=== PATIENT | male | born 1955 | race Caucasian/White ===

== ENCOUNTER → 2017-01-09 | Outpatient (CLI) | payer OTHER ==
--- NOTE | 2017-01-09 13:28 | MR ---
MRI CERVICAL SPINE: CLINICAL HISTORY: Cervical spine crepitus and osteophyte per order. Headache with severe posterior ne ck pain for 2 years causing pain or weakness in both arms and fingers per patient. TECHNIQUE: Multiplanar, multisequence imaging of the cervical spine is performed without and with IV contrast, 17 cc of gadolinium was given intravenously. COMPARISON: CT cervical spine myelogram September 25, 2010. FINDINGS: Sagittal images of the cervical spine show the craniocervical junction to remain within nor mal limits. The cervical and upper thoracic spinal cord is normal in course, caliber, and signal. V ertebral alignment is anatomic. The vertebral body heights are normal. There is moderate multilevel spurring and disc space narrowing most prominent at C6-C7 level redemonstrated. Heterogeneous endplat e changes are again seen. No suspicious postcontrast enhancement is noted. No large posterior disc he rniations are seen on sagittal images. Axial images at C2-C3 level redemonstrate left-sided uncovertebral facet degenerative changes causing asymmetric mild left-sided neural foraminal narrowing. Axial images at C3-C4 level show broad-based left paracentral disc protrusion and left-sided uncovert ebral facet degenerative changes with some right marginal spurring, there is mild to moderate bilater al neural foraminal narrowing, left greater than right. There is some effacement the anterior thecal sac. Axial images at C4-C5 level show broad-based posterior disc protrusion effacing anterior thecal sac w ith asymmetric mild to moderate right greater than left neural foraminal narrowing due to some margin al spurring. Axial images at C5-C6 level show left paracentral disc protrusion effacing anterolateral thecal sac, bilateral neural foramina are mildly narrowed. Axial images at C6-C7 level show broad-based left paracentral disc protrusion and marginal spurring e ffacing anterior thecal sac and causing mild left greater than right neural foraminal narrowing. Axial images at C7-T1 level are felt within normal limits. There is asymmetric prominence of left-sided piriform sinus or air collection on axial image 35 uncha nged from prior study. IMPRESSION: Moderate multilevel changes in the cervical spine as detailed above, no significant kaur e or progression from 2011 CT myelogram noted.
== END | disposition home or self-care (01) ==
LOC: RADMRIMAIN 11:45
PROVIDERS: ATTEND Family Medicine
DX: M47.812 Spondylosis without myelopathy or radiculopathy, cervical region (principal); M25.78 Osteophyte, vertebrae
CPT/HCPCS: 72156; A9577

== ENCOUNTER → 2017-11-26 | Outpatient (CLI) | payer OTHER ==
--- NOTE | 2017-11-26 15:53 | US ---
EXAMINATION TYPE: US kidneys/renal and bladder DATE OF EXAM: 11/26/2017 COMPARISON: 02/22/2014 CLINICAL HISTORY: R10.9 Right Flank Pain. Right flank pain x 8 months, history of kidney stones EXAM MEASUREMENTS: Right Kidney: 10.3 x 5.0 x 5.7 cm Left Kidney: 11.3 x 5.6 x 4.6 cm Right Kidney: 2.3 x 1.8 x 2.0cm isoechoic area mid pole, possible prominent column of rob (seen on previous us) Left Kidney: 0.5cm echogenic focus mid pole (seen on previous us) Bladder: wnl Bilateral Jets seen: yes IMPRESSION: 1. Column of Rob, likely present within the mid right kidney, similar to prior study. 2. Stable echogenic focus left kidney
== END | disposition home or self-care (01) ==
LOC: RADUSWWP 15:03
PROVIDERS: ATTEND Family Medicine
DX: R10.9 Unspecified abdominal pain (principal)
CPT/HCPCS: 76770

== ENCOUNTER → 2018-01-11 | Outpatient (CLI) | payer OTHER ==
[2018-01-11 11:02] LABS: ALT 51 U/L (21-72); AST 30 U/L (17-59); Albumin 4.2 g/dL (3.5-5.0); Alkaline Phosphatase 86 U/L (38-126); Anion Gap 13 mmol/L; Blood Urea Nitrogen 9 mg/dL (9-20); Carbon Dioxide 29 mmol/L (22-30); Chloride 102 mmol/L (98-107); Cholesterol 116 mg/dL (<200); Glucose 181 mg/dL (74-99); HDL Cholesterol 43 mg/dL (40-60); LDL Cholesterol,Calculated 51 mg/dL (0-99); Potassium 3.6 mmol/L (3.5-5.1); Sodium 144 mmol/L (137-145); Total Bilirubin 0.7 mg/dL (0.2-1.3); Total Protein 6.6 g/dL (6.3-8.2); Triglycerides 110 mg/dL (<150)
== END ==
LOC: LABWHC1 10:35
PROVIDERS: ATTEND Internal Medicine Interventional Cardiology
DX: E78.2 Mixed hyperlipidemia (principal)
CPT/HCPCS: 36415; 80053; 80061

== ENCOUNTER → 2018-02-04 | Outpatient (CLI) | payer OTHER ==
--- NOTE | 2018-02-04 12:08 | CT ---
EXAMINATION TYPE: CT iac wo con DATE OF EXAM: 02/04/2018 COMPARISON: NONE HISTORY: Cholesteatoma. Left-sided hearing loss. CT DLP: 235 mGycm. Automated Exposure Control for Dose Reduction was Utilized. TECHNIQUE: CT scan of internal auditory canal is performed without contrast, thin cut axial images ar e obtained, coronal reformatted images are also reviewed. FINDINGS: There is mild thickening of the left tympanic membrane. Right-sided tympanic membrane has a normal appearance. The external auditory canals are patent bilaterally. Mastoid air cells show no e vidence of abnormal opacification bilaterally. The middle ear ossicles are symmetric and unremarkabl e. There is no evidence of suspicious surrounding soft tissue density to suggest cholesteatoma. The scutum is preserved bilaterally. The cochlea and the semicircular canals are symmetric and unremark able. Vestibular aqueduct and internal carotid canal appear unremarkable. Temporomandibular joints are maintained bilaterally. Visualized paranasal sinuses are grossly clear. Visualized portion brain parenchyma is felt within normal limits. IMPRESSION: 1. Thickening of the left-sided tympanic membrane. 2. No evidence for cholesteatoma at this time.
== END | disposition home or self-care (01) ==
LOC: RADCTMAIN 10:47
PROVIDERS: ATTEND Otolaryngology Facial Plastic Surgery
DX: H73.892 Other specified disorders of tympanic membrane, left ear (principal)
CPT/HCPCS: 70480

== ENCOUNTER 2018-07-19 10:16 | Emergency (ER) | payer MEDICARE, OTHER ==
[2018-07-19 10:21] VITALS: TEMP 97.5
[2018-07-19] MEDS ORDERED: SODIUM CHLORIDE 0.9% 1,000 ML IV STA (10:35)
--- NOTE | 2018-07-19 10:50 | ED ---
Abdominal Pain HPI - General Source: patient, RN notes reviewed Mode of arrival: ambulatory Limitations: no limitations <Timothy Burciaga - Last Filed: 07/19/18 13:28> <David Feliciano - Last Filed: 07/19/18 13:35> - General Chief Complaint: Abdominal Pain Stated Complaint: Side pain Time Seen by Provider: 07/19/18 10:24 - History of Present Illness Initial Comments: This a 63-year-old male presents emergency Department chief complaint right low back pain. Patient states pain has been ongoing for last 2 months worsened over this last week. He states he cannot sleep. Patient states he saw his primary care physician had x-rays show no acute abnormality. Patient states that he has had prior lumbar surgery and bone grafting. Patient states that he has no new lower extremity symptoms. Denies any bowel bladder incontinence or retention. Patient states he has no abdominal pain denies any change in his bowel habits including color, size and caliber. Patient states that positional changes only make his pain better or worse. Patient is concerned has he states that his mother of liver disease and he states that he's a regular drinker. (Timothy Burciaga) - Related Data Home Medications Medication Instructions Recorded Confirmed Clopidogrel [Plavix] 75 mg PO DAILY 01/12/14 07/19/18 Gabapentin [Neurontin] 100 mg PO TID 01/12/14 07/19/18 Hydrocodone/Acetaminophen 1 tab PO Q4H PRN 01/12/14 07/19/18 [Hydrocodone/Acetaminophen 10-325] Nitroglycerin Sl Tabs [Nitrostat] 0.4 mg SUBLINGUAL Q5M PRN 01/12/14 07/19/18 Ranitidine HCl [Zantac] 150 mg PO BID 01/12/14 07/19/18 Ergocalciferol [Vitamin D2 50,000 unit PO Q30D 06/22/14 07/19/18 (DRISDOL)] Aspirin EC [Ecotrin] 325 mg PO DAILY 06/23/14 07/19/18 ALPRAZolam [Xanax] 0.25 mg PO HS 04/30/15 07/19/18 Albuterol Inhaler [Ventolin Hfa 1 - 2 puff INHALATION RT-Q6H PRN 04/30/15 Inhaler] Hydrochlorothiazide 50 mg PO DAILY 02/03/17 07/19/18 hydrALAZINE HCL 50 mg PO TID 02/03/17 07/19/18 Glimepiride [Amaryl] 4 mg PO BID 07/19/18 07/19/18 metFORMIN HCL [Glucophage] 850 mg PO TID 07/19/18 07/19/18 Previous Rx's Medication Instructions Recorded Atorvastatin [Lipitor] 80 mg PO DAILY tab 11/02/14 Metoprolol Tartrate [Lopressor] 25 mg PO BID #60 tab 05/01/15 Allergies Allergy/AdvReac Type Severity Reaction Status Date / Time No Known Allergies Allergy Verified 07/19/18 10:51 Review of Systems ROS Other: All systems not noted in ROS Statement are negative. <Timothy Burciaga - Last Filed: 07/19/18 13:28> ROS Other: All systems not noted in ROS Statement are negative. <David Feliciano - Last Filed: 07/19/18 13:35> ROS Statement: Those systems with pertinent positive or pertinent negative responses have been documented in the HPI. Past Medical History Past Medical History: Coronary Artery Disease (CAD), Chest Pain / Angina, COPD, CVA/TIA, Deep Vein Thrombosis (DVT), GERD/Reflux, GI Bleed, Hyperlipidemia, Hypertension, Osteoarthritis (OA), Pneumonia Additional Past Medical History / Comment(s): migraine; [place], hole in left eardrum, PVD; varicose veins; psorasis; chronic back pain. restless leg syndrome, hx of tia., stated boarderline diabetic no meds and does'nt check bs at home History of Any Multi-Drug Resistant Organisms: None Reported Past Surgical History: Back Surgery, Hernia Repair, Joint Replacement Additional Past Surgical History / Comment(s): hardware in back; rt knee replaced x2; egd; 4 stents (2010); left leg bypass graft, inguinal hernia.ABD AORTOGRAM AND LYNDA LOWER EXTREMITIY RUN OFF. Past Anesthesia/Blood Transfusion Reactions: No Reported Reaction Date of Last Stent Placement:: JUN 2011 Past Psychological History: Anxiety, Depression Smoking Status: Current some day smoker Past Alcohol Use History: Occasional Past Drug Use History: Marijuana - Past Family History Father Family Medical History: Cancer Brother(s) Family Medical History: Cancer, Diabetes Mellitus Mother Family Medical History: Cancer <GualbertoTimothy Dill - Last Filed: 07/19/18 13:28> General Exam Limitations: no limitations General appearance: alert, in no apparent distress Head exam: Present: atraumatic, normocephalic, normal inspection Respiratory exam: Present: normal lung sounds bilaterally. Absent: respiratory distress, wheezes, rales, rhonchi, stridor Cardiovascular Exam: Present: regular rate, normal rhythm, normal heart sounds. Absent: systolic murmur, diastolic murmur, rubs, gallop, clicks GI/Abdominal exam: Present: soft, normal bowel sounds. Absent: distended, tenderness, guarding, rebound, rigid Extremities exam: Present: normal inspection, full ROM, normal capillary refill. Absent: tenderness, pedal edema, joint swelling, calf tenderness Back exam: Present: full ROM, tenderness (Right lumbar region mild to moderate) . Absent: CVA tenderness (R), CVA tenderness (L) Neurological exam: Present: alert, oriented X3, CN II-XII intact, reflexes normal. Absent: motor sensory deficit Skin exam: Present: warm, dry, intact, normal color. Absent: rash <GualbertoTimothy Dill - Last Filed: 07/19/18 13:28> Vital Signs 07/19/18 10:19 Temperature 97.5 F L Pulse Rate 51 L Respiratory 16 Rate Blood Pressure 179/83 O2 Sat by Pulse 98 Oximetry Medical Decision Making - Lab Data Result diagrams: 07/19/18 10:45 07/19/18 10:45 <Timothy Burciaga - Last Filed: 07/19/18 13:28> - Lab Data Result diagrams: 07/19/18 10:45 07/19/18 10:45 <David Feliciano - Last Filed: 07/19/18 13:35> - Medical Decision Making 63-year-old male present emergency department for back pain. Patient lab work, CT shows Infrarenal AAA measuring 4.4 x 4.3 and contains extensive soft tissue thrombus or plaque. Displaced calcification within the thrombus noted there is reduction of the lumen diameter to approximately 1.1 cm. patient does have good pulses distally and equal warmth. There is some discoloration of left leg though this is chronic per patient. Dr. Feliciano did discuss the case with Dr. Kruse on-call vascular stated that he is stable to follow-up for further management. Patient is currently on Plavix and aspirin. We discussed return parameters. Patient will be given pain meds at this time and instructed to follow-up. Patient's labwork on the eyes unremarkable. (Timothy Burciaga) 63-year-old male with chief complaint of flank pain and abdominal pain. Pain is been present for several months. CT is obtained in the emergency department , the to show infrarenal abdominal aortic aneurysm measuring 4 x 4. There is large intraluminal plaque with calcifications and thrombus. Patient does have a reduced lumen with distal flow. His legs are warm, with cap refill and upper signal bilaterally. I did discuss the case with Dr. Kruse, vascular surgery, he recommends outpatient follow-up at this time. (David Feliciano) - Lab Data Lab Results 07/19/18 07/19/18 07/19/18 Range/Units 10:45 10:45 10:45 WBC 5.8 (3.8-10.6) k/uL RBC 4.81 (4.30-5.90) m/uL Hgb 15.9 (13.0-17.5) gm/dL Hct 46.4 (39.0-53.0) % MCV 96.5 (80.0-100.0) fL MCH 33.1 (25.0-35.0) pg MCHC 34.3 (31.0-37.0) g/dL RDW 13.0 (11.5-15.5) % Plt Count 209 (150-450) k/uL Neutrophils % 47 % Lymphocytes % 36 % Monocytes % 10 % Eosinophils % 2 % Basophils % 1 % Neutrophils # 2.7 (1.3-7.7) k/uL Lymphocytes # 2.1 (1.0-4.8) k/uL Monocytes # 0.6 (0-1.0) k/uL Eosinophils # 0.1 (0-0.7) k/uL Basophils # 0.0 (0-0.2) k/uL PT 9.9 (9.0-12.0) sec INR 1.0 (<1.2) APTT 23.5 (22.0-30.0) sec Sodium 137 (137-145) mmol/L Potassium 3.3 L (3.5-5.1) mmol/L Chloride 101 (98-107) mmol/L Carbon Dioxide 26 (22-30) mmol/L Anion Gap 10 mmol/L BUN 11 (9-20) mg/dL Creatinine 0.87 (0.66-1.25) mg/dL Est GFR (CKD-EPI)AfAm >90 (>60 ml/min/1.73 sqM) Est GFR (CKD-EPI)NonAf >90 (>60 ml/min/1.73 sqM) Glucose 112 H (74-99) mg/dL Calcium 9.7 (8.4-10.2) mg/dL Total Bilirubin 1.3 (0.2-1.3) mg/dL AST 40 (17-59) U/L ALT 49 (21-72) U/L Alkaline Phosphatase 66 (38-126) U/L Total Protein 7.0 (6.3-8.2) g/dL Albumin 4.2 (3.5-5.0) g/dL Amylase 39 (30-110) U/L Lipase 41 (23-300) U/L Urine Color Urine Appearance (Clear) Urine pH (5.0-8.0) Ur Specific [place] (1.001-1.035) Urine Protein (Negative) Urine Glucose (UA) (Negative) Urine Ketones (Negative) Urine Blood (Negative) Urine Nitrite (Negative) Urine Bilirubin (Negative) Urine Urobilinogen (<2.0) mg/dL Ur Leukocyte Esterase (Negative) 07/19/18 Range/Units 12:35 WBC (3.8-10.6) k/uL RBC (4.30-5.90) m/uL Hgb (13.0-17.5) gm/dL Hct (39.0-53.0) % MCV (80.0-100.0) fL MCH (25.0-35.0) pg MCHC (31.0-37.0) g/dL RDW (11.5-15.5) % Plt Count (150-450) k/uL Neutrophils % % Lymphocytes % % Monocytes % % Eosinophils % % Basophils % % Neutrophils # (1.3-7.7) k/uL Lymphocytes # (1.0-4.8) k/uL Monocytes # (0-1.0) k/uL Eosinophils # (0-0.7) k/uL Basophils # (0-0.2) k/uL PT (9.0-12.0) sec INR (<1.2) APTT (22.0-30.0) sec Sodium (137-145) mmol/L Potassium (3.5-5.1) mmol/L Chloride (98-107) mmol/L Carbon Dioxide (22-30) mmol/L Anion Gap mmol/L BUN (9-20) mg/dL Creatinine (0.66-1.25) mg/dL Est GFR (CKD-EPI)AfAm (>60 ml/min/1.73 sqM) Est GFR (CKD-EPI)NonAf (>60 ml/min/1.73 sqM) Glucose (74-99) mg/dL Calcium (8.4-10.2) mg/dL Total Bilirubin (0.2-1.3) mg/dL AST (17-59) U/L ALT (21-72) U/L Alkaline Phosphatase (38-126) U/L Total Protein (6.3-8.2) g/dL Albumin (3.5-5.0) g/dL Amylase (30-110) U/L Lipase (23-300) U/L Urine Color Yellow Urine Appearance Clear (Clear) Urine pH 6.5 (5.0-8.0) Ur Specific [place] 1.024 (1.001-1.035) Urine Protein Negative (Negative) Urine Glucose (UA) Negative (Negative) Urine Ketones Negative (Negative) Urine Blood Negative (Negative) Urine Nitrite Negative (Negative) Urine Bilirubin Negative (Negative) Urine Urobilinogen <2.0 (<2.0) mg/dL Ur Leukocyte Esterase Negative (Negative) Disposition Is patient prescribed a controlled substance at d/c from ED?: No Time of Disposition: 13:32 <Timothy Burciaga M - Last Filed: 07/19/18 13:28> <David Feliciano - Last Filed: 07/19/18 13:35> Clinical Impression: Back pain, AAA (abdominal aortic aneurysm) without rupture, Abdominal aorta thrombosis Disposition: HOME SELF-CARE Condition: Stable Instructions: Nonruptured Abdominal Aortic Aneurysm (DC) Additional Instructions: Please return to the Emergency Department if symptoms worsen or any other concerns. Referrals: None,Stated [REFERRING] - 1-2 days Juan Carlos Kruse MD [STAFF PHYSICIAN] - 1-2 days
[2018-07-19 11:05] LABS: Basophils % (A) 1 %; Eosinophils # (A) 0.1 k/uL (0-0.7); Eosinophils % (A) 2 %; HCT 46.4 % (39.0-53.0); HGB 15.9 gm/dL (13.0-17.5); Lymphocytes # (A) 2.1 k/uL (1.0-4.8); Lymphocytes % (A) 36 %; MCH 33.1 pg (25.0-35.0); MCHC 34.3 g/dL (31.0-37.0); MCV 96.5 fL (80.0-100.0); Mean Platelet Volume 6.7; Monocytes # (A) 0.6 k/uL (0-1.0); Monocytes % (A) 10 %; Neutrophils # (A) 2.7 k/uL (1.3-7.7); Neutrophils % (A) 47 %; Platelet Count 209 k/uL (150-450); RBC 4.81 m/uL (4.30-5.90); WBC 5.8 k/uL (3.8-10.6)
[2018-07-19 11:12] LABS: ALT 49 U/L (21-72); AST 40 U/L (17-59); Albumin 4.2 g/dL (3.5-5.0); Alkaline Phosphatase 66 U/L (38-126); Amylase 39 U/L (30-110); Anion Gap 10 mmol/L; Blood Urea Nitrogen 11 mg/dL (9-20); Calcium 9.7 mg/dL (8.4-10.2); Carbon Dioxide 26 mmol/L (22-30); Chloride 101 mmol/L (98-107); Glucose 112 mg/dL (74-99); Lipase 41 U/L (23-300); Potassium 3.3 mmol/L (3.5-5.1); Sodium 137 mmol/L (137-145); Total Bilirubin 1.3 mg/dL (0.2-1.3)
[2018-07-19 11:33] LABS: Partial Thromboplastin Time 23.5 sec (22.0-30.0); Prothrombin Time 9.9 sec (9.0-12.0)
--- NOTE | 2018-07-19 12:09 | CT ---
EXAMINATION TYPE: CT abdomen pelvis w con DATE OF EXAM: 07/19/2018 COMPARISON: None HISTORY: Pt has RT side pain radiating to spine x3 months. Hx lumbar and hernia surgery. CT DLP: 898.6 mGycm Automated exposure control for dose reduction was used. CONTRAST: CT scan of the abdomen pelvis is performed with IV Contrast, patient injected with 100 mL of Isovue 3 00. FINDINGS- LUNG BASES-subsegmental changes at the right lung base most typical atelectasis or scar.. LIVER/GB- No gross abnormality is appreciated. PANCREAS- No gross abnormality is seen. SPLEEN- No gross abnormality is seen. ADRENALS- No gross abnormality is seen. KIDNEYS/BLADDER- no hydronephrosis nephrolithiasis or renal mass. BOWEL- no bowel dilatation. Normal appendix. LYMPH NODES- No greater than 1cm abdominal or pelvic lymph nodes areappreciated. OSSEOUS STRUCTURES-and postsurgical changes involving the vertebral column. Degenerative disc disease and multilevel hypertrophic changes. Arthropathy of the hips. OTHER- subcutaneous varicosities are noted. There are surgical clips in the abdomen. Bladder wall mi ldly thickened. There is eccentric soft plaque and evidence of a infrarenal abdominal aortic aneurysm measuring 4.4 x 4.3 cm. Ectasia of the common iliac arteries are noted and there is diffuse atherosc lerotic changes. No free fluid or free air. Prostate mildly prominent. Fat-containing bilateral ingui nal hernias noted. Surgical clips in the inguinal canal suggest previous hernia surgery correlate cli nically.. IMPRESSION- 1. There is a infrarenal abdominal aortic aneurysm measuring 4.4 x 4.3 cm and contains extensive ecce ntric soft tissue thrombus or plaque. Displaced calcification within thrombus noted. There is reducti on in the luminal diameter (1.1 cm) of the aorta. Correlate clinically and with surgical consultation as clinically warranted. 2. Correlate for mild cystitis
[2018-07-19 13:20] LABS: Appearance,Urine Clear (Clear); Bilirubin,Urine Negative (Negative); Blood,Urine Negative (Negative); Color,Urine Yellow; Glucose,Urine (UA) Negative (Negative); Ketones,Urine Negative (Negative); Leukocyte Esterase,Urine Negative (Negative); Nitrite,Urine Negative (Negative); PH, Urine 6.5 (5.0-8.0); Protein,Urine Negative (Negative); Specific Gravity,Urine 1.024 (1.001-1.035); Urobilinogen,Urine <2.0 mg/dL (<2.0)
[2018-07-19] MEDS ORDERED: MORPHINE SULFATE 2 MG/ML SYRINGE IVP ONE (13:27)
[2018-07-19] MEDS ORDERED: ONDANSETRON 4 MG/2 ML VIAL IVP STA (13:27)
[2018-07-19] MEDS ORDERED: ACET/COD 300 MG/30 MG STARTER PACK 6 TAB BTL PO STA (13:33)
[2018-07-19 14:25] VITALS: BP 146/88; PULSE 53; RESP 18
== END 2018-07-19 14:25 | disposition home or self-care (01) ==
LOC: EC 10:16
DX: I71.4 Abdominal aortic aneurysm, without rupture (principal); I74.09 Other arterial embolism and thrombosis of abdominal aorta; I25.119 Atherosclerotic heart disease of native coronary artery with unspecified angina pectoris; J44.9 Chronic obstructive pulmonary disease, unspecified; K21.9 Gastro-esophageal reflux disease without esophagitis; I10 Essential (primary) hypertension; F41.9 Anxiety disorder, unspecified; F32.9 Major depressive disorder, single episode, unspecified; I73.9 Peripheral vascular disease, unspecified; M19.90 Unspecified osteoarthritis, unspecified site; F17.200 Nicotine dependence, unspecified, uncomplicated; Z79.02 Long term (current) use of antithrombotics/antiplatelets; Z79.82 Long term (current) use of aspirin; Z79.84 Long term (current) use of oral hypoglycemic drugs; Z79.899 Other long term (current) drug therapy; Z86.718 Personal history of other venous thrombosis and embolism; Z86.73 Personal history of transient ischemic attack (TIA), and cerebral infarction without residual deficits; Z96.651 Presence of right artificial knee joint; Z95.1 Presence of aortocoronary bypass graft; Z95.5 Presence of coronary angioplasty implant and graft
CPT/HCPCS: 36415; 80053; 82150; 83690; 85025; 85610; 85730; 81003; 74177; 99284; 96360; 96361 ×3; Q9967

== ENCOUNTER → 2018-09-10 | Outpatient (CLI) | payer MEDICARE, OTHER ==
[2018-09-10 15:39] LABS: LDL Cholesterol,Calculated 75.6 mg/dL (0.0-131.0); VLDL Calculation 26.4 mg/dL (5.00-40.00)
== END ==
LOC: LABWHC1 06:58
PROVIDERS: ATTEND Internal Medicine Interventional Cardiology
DX: E78.2 Mixed hyperlipidemia (principal)
CPT/HCPCS: 36415; 80061; 84450; 84460

== ENCOUNTER → 2018-10-08 | Outpatient (CLI) | payer MEDICARE, OTHER ==
[2018-10-08 10:29] LABS: HCT 47.8 % (39.0-53.0); HGB 16.4 gm/dL (13.0-17.5); MCH 33.6 pg (25.0-35.0); MCHC 34.3 g/dL (31.0-37.0); MCV 98.1 fL (80.0-100.0); Mean Platelet Volume 6.7; Platelet Count 235 k/uL (150-450); RBC 4.87 m/uL (4.30-5.90); RDW 13.3 % (11.5-15.5); WBC 5.4 k/uL (3.8-10.6)
[2018-10-08 10:41] LABS: Anion Gap 8 mmol/L; Blood Urea Nitrogen 5 mg/dL (9-20); Carbon Dioxide 31 mmol/L (22-30); Chloride 101 mmol/L (98-107); Potassium 4.5 mmol/L (3.5-5.1); Sodium 140 mmol/L (137-145)
== END | disposition home or self-care (01) ==
LOC: LABPAT 09:19
PROVIDERS: ATTEND Internal Medicine Interventional Cardiology
DX: Z01.812 Encounter for preprocedural laboratory examination (principal); I25.10 Atherosclerotic heart disease of native coronary artery without angina pectoris; I10 Essential (primary) hypertension; E78.2 Mixed hyperlipidemia
CPT/HCPCS: 36415; 80051; 82565; 84520; 85027

== ENCOUNTER → 2018-10-12 | Day surgery (SDC) | payer MEDICARE, OTHER ==
[2018-10-08 15:34] VITALS: BMI 28.3
[~2018-10-12] MED LIST: ALPRAZolam 0.25 MG TAB PO PRN; ALPRAZolam 0.25 MG TAB PO SCH; ALPRAZolam 0.5 MG TAB PO PRN; ASPIRIN 325 MG TAB PO STA; ATORVASTATIN 80 MG TAB PO SCH; ATORVASTATIN 80 MG TAB PO STA; CLOPIDOGREL 75 MG TAB PO SCH; ERGOCALCIFEROL 50,000 UNIT CAP PO SCH; GABAPENTIN 100 MG CAP PO SCH; GLIMEPIRIDE 4 MG TAB PO SCH; HEPARIN SODIUM 1,000 UN/ML (10ML VL) IV ONE; HYDROCHLOROTHIAZIDE 50 MG TAB PO SCH; HYDROcodone/APAP 10-325MG 1 EACH TAB PO PRN; IOPAMIDOL-370 125ML BTL INJ ONE; LIDOCAINE 1% INJ 10MG/ML (20 ML MDV) SQ ONE; METOPROLOL TARTRATE 25 MG TAB PO SCH; NITROGLYCERIN SL TABS 0.4 MG TAB SUBLINGUAL PRN; NON-FORMULARY DRUG (Aspirin Ec 325 MG) PO SCH; NON-FORMULARY DRUG (Ranitidine Hcl [Zantac] 150 MG) PO SCH; RX INFO: IV CONTRAST WAS GIVEN 1 EACH MISC MISCELLANE PRN; SODIUM CHLORIDE 0.9% 1,000 ML IV ONE; SODIUM CHLORIDE 0.9% 1,000 ML IV SCH; SODIUM CHLORIDE 0.9% 1,000 ML in EMPTY BAG 1 BAG IV ONE; VERAPAMIL SYRINGE (5 MG/10 ML) INTRAARTER ONE; fentaNYL (PF) 50 MCG/ML 2 ML AMP IVP ONE; hydrALAZINE HCL 50 MG TAB PO SCH
[2018-10-12 07:01] LABS: Glucose,Whole Blood 110 mg/dL (75-99)
[2018-10-12 07:11] VITALS: TEMP 97.7
--- NOTE | 2018-10-12 08:48 | CC ---
CARDIAC CATHETERIZATION REPORT CARDIAC CATHETERIZATION PROCEDURE NOTE: Mr. Johnston is a 63-year-old male with known history of hypertension, hyperlipidemia, as well as chronic tobacco use, history of percutaneous revascularization of the LAD in 2012 with 4 stents placed at that time as well as history of peripheral disease and abdominal aortic aneurysm, who has been complaining of dyspnea on exertion; underwent a myocardial perfusion imaging that revealed evidence of inducible ischemia. In view of that, recommendation regarding cardiac catheterization, the procedures, risks and complications were discussed with the patient who is in full understanding and agreement. PROCEDURE: Patient was brought to the quality assurance/r&d lab technician in a fasting semi-sedated state after receiving fentanyl and Benadryl and achieving moderate conscious sedated state. Using Xylocaine anesthesia and Seldinger technique, a 6-[place] sheath was introduced in the left radial artery. Selective right and left angiography was performed using 5-[place]ian 4 bend right and left Musa catheter multiple views including hemiaxial views obtained, following that a 5-[place] tight pigtail catheter was introduced in the left ventricle and a 30 degree FAROOQ view of the left ventricle was obtained. Following that, catheter and sheaths were removed. Hemostasis was obtained. Following that, a TR band. There was no immediate complication. Patient is returned to his room in stable condition. Of note, patient received a total of 4500 units of intravenous heparin as well as intra- arterial verapamil. There was no immediate complication. FINDINGS: LEFT MAIN: This is a short size vessel bifurcating into left circumflex, left anterior descending artery. Left main coronary artery has no evidence of high-grade stenosis. LEFT ANTERIOR DESCENDING ARTERY: This is a large-sized vessel, reaching toward the apex with a wraparound apex segment. The proximal mid segment of the LAD has a long segment that is stented with mild intimal restenoses of about 20% to 30%. At the distal edge of the stent, there is a 50% to 60% plaque, beyond that the vessel is small in caliber. LEFT CIRCUMFLEX: This is a codominant vessel, giving rise distally into PDA and posterolateral segment and branches. The left circumflex give rise so to a large obtuse marginal branch proximally. The left circumflex and its branches have no evidence of obstructive coronary artery disease. RIGHT CORONARY ARTERY: This is a codominant vessel, giving rise to a small PDA distally. The right coronary artery in the proximal segment has a long diffuse area of stenosis up to 90%. The vessel beyond that is small in caliber and diffusely diseased. LEFT VENTRICULOGRAM: Left ventriculogram is performed in 30 degree FAROOQ view and revealed normal left ventricular size and systolic function. Ejection fraction is 60%. There was no significant mitral regurgitation. Evidence of a calcified abdominal aortic aneurysm was visualized. HEMODYNAMICS: There was no gradient across the aortic valve. The left ventricle end-diastolic pressure was 24 mmHg. CONCLUSION: 1. Critical stenosis in a long segment of the proximal and mid right coronary artery with no significant progression of disease since 2011 with small diffuse diseased distal. 2. Patent stent to a long segment of the LAD with moderate disease distal to the stent, beyond that the vessel is small in caliber. 3. Normal left ventricular size and systolic function. 4. Evidence of abdominal aortic aneurysm. RECOMMENDATION: In view of finding anatomy, I recommend continue medical therapy. The right coronary artery lesion is chronic and the vessel is diffusely disease. Those findings and recommendation were discussed with the patient who is in full understanding and agreement. The importance of tobacco cessation was discussed with him. Duration of procedure 24 minutes. MMODL / IJN: [id number] /
[2018-10-12 09:05] VITALS: RESP 16
[2018-10-12 12:27] VITALS: BP 141/78; PULSE 45
== END | disposition home or self-care (01) ==
LOC: CATHCVL 06:08
PROVIDERS: ATTEND Internal Medicine Interventional Cardiology
DX: I25.10 Atherosclerotic heart disease of native coronary artery without angina pectoris (principal); I71.4 Abdominal aortic aneurysm, without rupture; I10 Essential (primary) hypertension; I73.9 Peripheral vascular disease, unspecified; E78.5 Hyperlipidemia, unspecified; Z72.0 Tobacco use; Z79.891 Long term (current) use of opiate analgesic; Z79.899 Other long term (current) drug therapy; Z79.02 Long term (current) use of antithrombotics/antiplatelets; Z95.5 Presence of coronary angioplasty implant and graft
CPT/HCPCS: 93458; 99152; C1894; C1769; J2001; J3010; J1644; Q9967

== ENCOUNTER 2018-11-28 09:46 | Emergency (ER) | payer MEDICARE, OTHER ==
[2018-11-28 09:50] VITALS: PULSE 51
[2018-11-28] MEDS ORDERED: KETOROLAC 30 MG/ML 1 ML VIAL IVP STA (10:01)
[2018-11-28] MEDS ORDERED: MORPHINE SULFATE 4 MG/ML SYRINGE IVP STA (10:01)
--- NOTE | 2018-11-28 10:08 | ED ---
General Adult HPI - General Chief complaint: Back Pain/Injury Stated complaint: Side Pain Time Seen by Provider: 11/28/18 09:52 Source: patient, RN notes reviewed, old records reviewed Mode of arrival: ambulatory Limitations: no limitations - History of Present Illness Initial comments: 63-year-old male presented for evaluation of right sided low back pain and flank pain. Patient's pain began yesterday evening while the patient was standing from a seated position. Denies any specific trauma. Pain was sudden in onset. Pain is worse with movement or sitting. Patient denies hematuria or dysuria. Denies fever or chills. Patient does have history of chronic back pain and has [place]. - Related Data Home Medications Medication Instructions Recorded Confirmed Clopidogrel [Plavix] 75 mg PO DAILY 01/12/14 11/28/18 Gabapentin [Neurontin] 100 mg PO TID 01/12/14 11/28/18 Hydrocodone/Acetaminophen 1 tab PO Q4H PRN 01/12/14 11/28/18 [Hydrocodone/Acetaminophen 10-325] Nitroglycerin Sl Tabs [Nitrostat] 0.4 mg SUBLINGUAL Q5M PRN 01/12/14 11/28/18 Ranitidine HCl [Zantac] 150 mg PO BID 01/12/14 11/28/18 Ergocalciferol [Vitamin D2 50,000 unit PO QMONTH 06/22/14 11/28/18 (DRISDOL)] Aspirin EC [Ecotrin] 325 mg PO DAILY 06/23/14 11/28/18 ALPRAZolam [Xanax] 0.25 mg PO HS 04/30/15 11/28/18 Albuterol Inhaler [Ventolin Hfa 1 - 2 puff INHALATION RT-Q6H PRN 04/30/15 11/28/18 Inhaler] Hydrochlorothiazide 50 mg PO DAILY 02/03/17 11/28/18 hydrALAZINE HCL 50 mg PO TID 02/03/17 11/28/18 Glimepiride [Amaryl] 4 mg PO BID 07/19/18 11/28/18 metFORMIN HCL [Glucophage] 850 mg PO TID 07/19/18 11/28/18 Atorvastatin [Lipitor] 80 mg PO DAILY 09/09/18 11/28/18 Previous Rx's Medication Instructions Recorded Metoprolol Tartrate [Lopressor] 25 mg PO BID #60 tab 05/01/15 methylPREDNISolone Dose Pack 4 mg PO DIRECTED #21 package 11/28/18 [Medrol Dose Pack] Allergies Allergy/AdvReac Type Severity Reaction Status Date / Time No Known Allergies Allergy Verified 11/28/18 10:46 Review of Systems ROS Statement: Those systems with pertinent positive or pertinent negative responses have been documented in the HPI. ROS Other: All systems not noted in ROS Statement are negative. Past Medical History Past Medical History: Coronary Artery Disease (CAD), Chest Pain / Angina, COPD, CVA/TIA, Deep Vein Thrombosis (DVT), GERD/Reflux, GI Bleed, Hyperlipidemia, Hypertension, Osteoarthritis (OA), Pneumonia Additional Past Medical History / Comment(s): migraine; [place], hole in left eardrum, PVD; varicose veins; psorasis; chronic back pain. restless leg syndrome, hx of tia., stated boarderline diabetic no meds and does'nt check bs at home. ear infection will be finished with antibiotic prior to procedure History of Any Multi-Drug Resistant Organisms: None Reported Past Surgical History: Back Surgery, Hernia Repair, Joint Replacement Additional Past Surgical History / Comment(s): hardware in back; rt knee replaced x2; egd; 4 stents (2010); left leg bypass graft, inguinal hernia.ABD AORTOGRAM AND LYNDA LOWER EXTREMITIY RUN OFF. Past Anesthesia/Blood Transfusion Reactions: No Reported Reaction Date of Last Stent Placement:: JUN 2011 Past Psychological History: Anxiety, Depression Smoking Status: Current some day smoker - Past Family History Father Family Medical History: Cancer Brother(s) Family Medical History: Cancer Mother Family Medical History: Cancer General Exam Limitations: no limitations General appearance: alert, in no apparent distress Head exam: Present: atraumatic, normocephalic Eye exam: Present: normal appearance, PERRL ENT exam: Present: normal exam Neck exam: Present: normal inspection Respiratory exam: Present: normal lung sounds bilaterally. Absent: respiratory distress, wheezes Cardiovascular Exam: Present: normal rhythm, bradycardia GI/Abdominal exam: Present: soft. Absent: distended, tenderness Extremities exam: Present: normal inspection, normal capillary refill. Absent: tenderness Back exam: Present: muscle spasm, paraspinal tenderness, other (Midline lumbar incision, previous spinal surgery). Absent: vertebral tenderness Neurological exam: Present: alert, oriented X3, CN II-XII intact, normal gait, motor sensory deficit Psychiatric exam: Present: normal affect, normal mood Skin exam: Present: warm, dry, intact. Absent: cyanosis, diaphoretic Course Vital Signs 11/28/18 09:48 Temperature 97.6 F Pulse Rate 51 L Respiratory 20 Rate Blood Pressure 155/78 O2 Sat by Pulse 98 Oximetry - Reevaluation(s) Reevaluation #1: 11/28/18 11:32 Patient reevaluated, resting comfortably, pain improved Medical Decision Making - Medical Decision Making 63-year-old male with right-sided low back pain and flank pain. Pain was worse with movement, there was a component suggestive that this may be renal colic, workup in the emergency department reveals normal CBC, normal CMP, urinalysis n egative for red cells, no infection. CT is obtained, negative for any stones, there is a known 4.7 cm aortic aneurysm, fecal stasis as this patient is on chronic [place]. No other acute findings. Patient's has had this chronic pain for some time, we'll continue [place] at home. Will be prescribed course of steroids. Will follow-up with his primary care physician. - Lab Data Result diagrams: 11/28/18 10:20 11/28/18 10:20 Lab Results 11/28/18 11/28/18 11/28/18 Range/Units 10:20 10:20 10:20 WBC 6.1 (3.8-10.6) k/uL RBC 4.99 (4.30-5.90) m/uL Hgb 16.1 (13.0-17.5) gm/dL Hct 47.3 (39.0-53.0) % MCV 94.9 (80.0-100.0) fL MCH 32.3 (25.0-35.0) pg MCHC 34.0 (31.0-37.0) g/dL RDW 12.5 (11.5-15.5) % Plt Count 239 (150-450) k/uL Neutrophils % 50 % Lymphocytes % 34 % Monocytes % 8 % Eosinophils % 3 % Basophils % 1 % Neutrophils # 3.0 (1.3-7.7) k/uL Lymphocytes # 2.1 (1.0-4.8) k/uL Monocytes # 0.5 (0-1.0) k/uL Eosinophils # 0.2 (0-0.7) k/uL Basophils # 0.0 (0-0.2) k/uL Sodium 135 L (137-145) mmol/L Potassium 3.8 (3.5-5.1) mmol/L Chloride 99 (98-107) mmol/L Carbon Dioxide 28 (22-30) mmol/L Anion Gap 8 mmol/L BUN 9 (9-20) mg/dL Creatinine 0.56 L (0.66-1.25) mg/dL Est GFR (CKD-EPI)AfAm >90 (>60 ml/min/1.73 sqM) Est GFR (CKD-EPI)NonAf >90 (>60 ml/min/1.73 sqM) Glucose 129 H (74-99) mg/dL Calcium 9.9 (8.4-10.2) mg/dL Total Bilirubin 1.1 (0.2-1.3) mg/dL AST 30 (17-59) U/L ALT 47 (21-72) U/L Alkaline Phosphatase 68 (38-126) U/L Total Protein 7.1 (6.3-8.2) g/dL Albumin 4.3 (3.5-5.0) g/dL Urine Color Yellow Urine Appearance Clear (Clear) Urine pH 7.0 (5.0-8.0) Ur Specific [place] 1.008 (1.001-1.035) Urine Protein Negative (Negative) Urine Glucose (UA) Negative (Negative) Urine Ketones Negative (Negative) Urine Blood Negative (Negative) Urine Nitrite Negative (Negative) Urine Bilirubin Negative (Negative) Urine Urobilinogen <2.0 (<2.0) mg/dL Ur Leukocyte Esterase Negative (Negative) Disposition Clinical Impression: Mechanical back pain, Strain of lumbar region Disposition: HOME SELF-CARE Condition: Fair Instructions (If sedation given, give patient instructions): Chronic Back Pain (ED), Acute Low Back Pain (ED) Prescriptions: methylPREDNISolone Dose Pack [Medrol Dose Pack] 4 mg PO DIRECTED #21 package Is patient prescribed a controlled substance at d/c from ED?: No Referrals: Trey Lee MD [Primary Care Provider] - 1-2 days Camacho Langley DO [Doctor of Osteopathic Medicine] - 1-2 days Time of Disposition: 11:33
[2018-11-28 10:35] LABS: Appearance,Urine Clear (Clear); Basophils % (A) 1 %; Bilirubin,Urine Negative (Negative); Blood,Urine Negative (Negative); Color,Urine Yellow; Eosinophils # (A) 0.2 k/uL (0-0.7); Eosinophils % (A) 3 %; Glucose,Urine (UA) Negative (Negative); HCT 47.3 % (39.0-53.0); HGB 16.1 gm/dL (13.0-17.5); Ketones,Urine Negative (Negative); Leukocyte Esterase,Urine Negative (Negative); Lymphocytes # (A) 2.1 k/uL (1.0-4.8); Lymphocytes % (A) 34 %; MCH 32.3 pg (25.0-35.0); MCV 94.9 fL (80.0-100.0); Mean Platelet Volume 6.8; Monocytes # (A) 0.5 k/uL (0-1.0); Monocytes % (A) 8 %; Neutrophils % (A) 50 %; Nitrite,Urine Negative (Negative); Platelet Count 239 k/uL (150-450); Protein,Urine Negative (Negative); RBC 4.99 m/uL (4.30-5.90); RDW 12.5 % (11.5-15.5); Specific Gravity,Urine 1.008 (1.001-1.035); Urobilinogen,Urine <2.0 mg/dL (<2.0); WBC 6.1 k/uL (3.8-10.6)
[2018-11-28 10:46] LABS: Albumin 4.3 g/dL (3.5-5.0); Anion Gap 8 mmol/L; Blood Urea Nitrogen 9 mg/dL (9-20); Calcium 9.9 mg/dL (8.4-10.2); Carbon Dioxide 28 mmol/L (22-30); Chloride 99 mmol/L (98-107); Glucose 129 mg/dL (74-99); Sodium 135 mmol/L (137-145); Total Bilirubin 1.1 mg/dL (0.2-1.3); Total Protein 7.1 g/dL (6.3-8.2)
[2018-11-28 10:51] LABS: ALT 47 U/L (21-72); AST 30 U/L (17-59); Alkaline Phosphatase 68 U/L (38-126); Potassium 3.8 mmol/L (3.5-5.1)
--- NOTE | 2018-11-28 11:21 | CT ---
EXAMINATION TYPE: CT abdomen pelvis wo con DATE OF EXAM: 11/28/2018 COMPARISON: Prior CT 07/19/2018 HISTORY: Rt flank pain CT DLP: 588.9 mGycm Automated exposure control for dose reduction was used. TECHNIQUE: Helical acquisition of images from the lung bases through the pelvis. FINDINGS: Lack of contrast could compromise sensitivity. Small umbilical hernia contains fat. LUNG BASES: Some minimal strand-like densities are again noted compatible with scarring. No pleural o r pericardial effusion. AORTA: No significant interval change is appreciated. Infrarenal abdominal aortic aneurysm is again noted, there are atheromatous changes present. LIVER/GB: No significant interval change is appreciated. PANCREAS: Stable SPLEEN: No significant abnormality is seen. ADRENALS: No significant abnormality is seen. KIDNEYS: No significant interval change is seen. REPRODUCTIVE ORGANS: Prostate is stable, there are associated calcifications as on prior, metallic d ensity within the right inguinal canal is stable URINARY BLADDER: There is urinary bladder wall thickening as on prior possibly due to chronic outlet obstruction, correlate to exclude cystitis. BOWEL: Retained fecal debris present throughout the distribution of the colon, correlate for possibl e fecal stasis. The appendix is normal. FREE AIR: No Free Air is visible. ASCITES: None visible. PELVIC ADENOPATHY: None visualized. Varices noted over the lower pelvis anteriorly as on prior RETROPERITONEAL ADENOPATHY: No Retroperitoneal Adenopathy visible. OSSEOUS STRUCTURES: No significant interval change is seen, postop changes again seen in the lumbar spine. IMPRESSION: NONCONTRAST EXAM COULD LIMIT SENSITIVITY. INFRARENAL ABDOMINAL AORTIC ANEURYSM IS STABLE IN SIZE AND APPROXIMATELY 4.7 CM. POSTOP CHANGES ARE NOTED TO BE LUMBAR SPINE. CORRELATE FOR POSSIBLE CHRONIC SHREYAS DDER OUTLET OBSTRUCTION, FECAL STASIS DESCRIBED. Findings are similar to prior exam.
[2018-11-28 11:50] VITALS: BP 133/72; RESP 18; TEMP 98.1
== END 2018-11-28 11:39 | disposition home or self-care (01) ==
LOC: EC 09:46
DX: S39.012A Strain of muscle, fascia and tendon of lower back, initial encounter (principal); I25.119 Atherosclerotic heart disease of native coronary artery with unspecified angina pectoris; K21.9 Gastro-esophageal reflux disease without esophagitis; E78.5 Hyperlipidemia, unspecified; M19.90 Unspecified osteoarthritis, unspecified site; I10 Essential (primary) hypertension; J44.9 Chronic obstructive pulmonary disease, unspecified; G25.81 Restless legs syndrome; F32.9 Major depressive disorder, single episode, unspecified; F41.9 Anxiety disorder, unspecified; F17.200 Nicotine dependence, unspecified, uncomplicated; Z86.73 Personal history of transient ischemic attack (TIA), and cerebral infarction without residual deficits; Z86.718 Personal history of other venous thrombosis and embolism; Z79.82 Long term (current) use of aspirin; Z79.01 Long term (current) use of anticoagulants; Z79.84 Long term (current) use of oral hypoglycemic drugs; Z79.899 Other long term (current) drug therapy; Z96.652 Presence of left artificial knee joint
CPT/HCPCS: 36415; 80053; 85025; 81003; 74176; 99284; 96374; 96375; J2270; J1885

== ENCOUNTER → 2019-03-24 | Outpatient (CLI) | payer MEDICARE, OTHER ==
[2019-03-24 15:38] LABS: LDL Cholesterol,Calculated 65.6 mg/dL (0.0-131.0); VLDL Calculation 16.4 mg/dL (5.00-40.00)
== END | disposition home or self-care (01) ==
LOC: LABWHC1 11:39
PROVIDERS: ATTEND Nurse Practitioner Adult Health
DX: E78.2 Mixed hyperlipidemia (principal)
CPT/HCPCS: 36415; 80061; 84450; 84460

== ENCOUNTER 2019-03-30 12:34 | Observation (INO) | payer MEDICARE, OTHER ==
--- NOTE | 2019-03-30 13:08 | ED ---
Chest Pain HPI - General Chief Complaint: Chest Pain Stated Complaint: SOB/chest pain Time Seen by Provider: 03/30/19 12:51 Source: patient, RN notes reviewed, old records reviewed Mode of arrival: wheelchair Limitations: no limitations - History of Present Illness Initial Comments: This is a 64-year-old male the ER for evaluation. This patient presents today for evaluation regards to chest pain. History of chest pain angioplasty and heart disease. Patient had chest pain diaphoresis shortness breath is likely coming in. Also complaining some back pain and swelling. Mild nausea no vomiting, also complaining of abdominal pain MD Complaint: chest pain -: hour(s) Onset: during rest, during exertion Pain Location: substernal, left chest Pain Radiation: LUE, jaw/teeth Severity: moderate Severity scale (1-10): 5 Quality: tightness Consistency: constant Improves With: nothing Worsens With: nothing Anginal Symptoms: nausea Other Symptoms: palpitations Treatments Prior to Arrival: none - Related Data Home Medications Medication Instructions Recorded Confirmed Clopidogrel [Plavix] 75 mg PO DAILY 01/12/14 03/30/19 Gabapentin [Neurontin] 100 mg PO TID 01/12/14 03/30/19 Hydrocodone/Acetaminophen 1 tab PO Q4H PRN 01/12/14 03/30/19 [Hydrocodone/Acetaminophen 10-325] Nitroglycerin Sl Tabs [Nitrostat] 0.4 mg SUBLINGUAL Q5M PRN 01/12/14 03/30/19 Ranitidine HCl [Zantac] 150 mg PO BID 01/12/14 03/30/19 Ergocalciferol [Vitamin D2 50,000 unit PO QMONTH 06/22/14 03/30/19 (DRISDOL)] Aspirin EC [Ecotrin] 325 mg PO DAILY 06/23/14 03/30/19 ALPRAZolam [Xanax] 0.25 mg PO HS PRN 04/30/15 03/30/19 Albuterol Inhaler [Ventolin Hfa 1 - 2 puff INHALATION RT-Q6H PRN 04/30/15 03/30/19 Inhaler] Hydrochlorothiazide 50 mg PO DAILY 02/03/17 03/30/19 hydrALAZINE HCL 50 mg PO TID 02/03/17 03/30/19 Glimepiride [Amaryl] 4 mg PO BID 07/19/18 03/30/19 metFORMIN HCL [Glucophage] 850 mg PO TID 07/19/18 03/30/19 Atorvastatin [Lipitor] 80 mg PO DAILY 09/09/18 03/30/19 Previous Rx's Medication Instructions Recorded Metoprolol Tartrate [Lopressor] 25 mg PO BID #60 tab 05/01/15 Allergies Allergy/AdvReac Type Severity Reaction Status Date / Time No Known Allergies Allergy Verified 03/30/19 13:40 Review of Systems ROS Statement: Those systems with pertinent positive or pertinent negative responses have been documented in the HPI. ROS Other: All systems not noted in ROS Statement are negative. EKG Findings - EKG Comments: EKG Findings:: EKG shows sinus bradycardia rate of 43, [place] 192, QRS 112, QTc 429 Past Medical History Past Medical History: Coronary Artery Disease (CAD), Chest Pain / Angina, COPD, CVA/TIA, Deep Vein Thrombosis (DVT), GERD/Reflux, GI Bleed, Hyperlipidemia, Hypertension, Osteoarthritis (OA), Pneumonia Additional Past Medical History / Comment(s): migraine; [place], hole in left eardrum, PVD; varicose veins; psorasis; chronic back pain. restless leg syndrome, hx of tia., stated boarderline diabetic no meds and does'nt check bs at home. ear infection will be finished with antibiotic prior to procedure History of Any Multi-Drug Resistant Organisms: None Reported Past Surgical History: Back Surgery, Hernia Repair, Joint Replacement Additional Past Surgical History / Comment(s): hardware in back; rt knee replaced x2; egd; 4 stents (2010); left leg bypass graft, inguinal hernia.ABD AORTOGRAM AND LYNDA LOWER EXTREMITIY RUN OFF. Past Anesthesia/Blood Transfusion Reactions: No Reported Reaction Date of Last Stent Placement:: JUN 2011 Past Psychological History: Anxiety, Depression Smoking Status: Current some day smoker Past Alcohol Use History: Occasional Past Drug Use History: Marijuana - Past Family History Father Family Medical History: Cancer Brother(s) Family Medical History: Cancer Mother Family Medical History: Cancer General Exam Limitations: no limitations General appearance: alert, in no apparent distress Head exam: Present: atraumatic, normocephalic, normal inspection Eye exam: Present: normal appearance, PERRL, EOMI. Absent: scleral icterus, conjunctival injection, periorbital swelling ENT exam: Present: normal exam, mucous membranes moist Neck exam: Present: normal inspection. Absent: tenderness, meningismus, lymphadenopathy Respiratory exam: Present: normal lung sounds bilaterally. Absent: respiratory distress, wheezes, rales, rhonchi, stridor Cardiovascular Exam: Present: normal rhythm, bradycardia, normal heart sounds. Absent: systolic murmur, diastolic murmur, rubs, gallop, clicks GI/Abdominal exam: Present: soft, normal bowel sounds. Absent: distended, tenderness, guarding, rebound, rigid Extremities exam: Present: normal inspection, full ROM, normal capillary refill. Absent: tenderness, pedal edema, joint swelling, calf tenderness Back exam: Present: normal inspection Neurological exam: Present: alert, oriented X3, CN II-XII intact Psychiatric exam: Present: normal affect, normal mood Skin exam: Present: warm, dry, intact, normal color. Absent: rash Course Vital Signs 03/30/19 12:42 Temperature 97.4 F L Pulse Rate 44 L Respiratory 16 Rate Blood Pressure 169/79 O2 Sat by Pulse 97 Oximetry - Reevaluation(s) Reevaluation #1: 03/30/19 15:00 Medical records reviewed Reevaluation #2: 03/30/19 15:00 Admitted for cardiac observation Chest Pain MDM - MDM 64 male the ER for evaluation will admit for chest pain observation, cardiac evaluation, patient also remains bradycardic with chest pain. Critical Care Time Critical Care Time: Yes Total Critical Care Time: 31 Disposition Clinical Impression: Chest pain, Bradycardia Disposition: ADMITTED IP TO THIS HOSP Condition: Fair Is patient prescribed a controlled substance at d/c from ED?: No Referrals: Trey Lee MD [Primary Care Provider] - 1-2 days
[2019-03-30 13:27] LABS: Basophils % (A) 1 %; Eosinophils # (A) 0.1 k/uL (0-0.7); Eosinophils % (A) 2 %; HCT 45.4 % (39.0-53.0); HGB 15.6 gm/dL (13.0-17.5); Lymphocytes # (A) 2.6 k/uL (1.0-4.8); Lymphocytes % (A) 44 %; MCH 33.1 pg (25.0-35.0); MCHC 34.3 g/dL (31.0-37.0); MCV 96.5 fL (80.0-100.0); Mean Platelet Volume 7.4; Monocytes # (A) 0.4 k/uL (0-1.0); Monocytes % (A) 7 %; Neutrophils # (A) 2.5 k/uL (1.3-7.7); Neutrophils % (A) 42 %; Platelet Count 235 k/uL (150-450); RDW 14.5 % (11.5-15.5)
[2019-03-30 13:39] LABS: INR 0.9 (<1.2); Partial Thromboplastin Time 22.8 sec (22.0-30.0); Prothrombin Time 9.9 sec (9.0-12.0)
[2019-03-30 13:43] LABS: ALT 45 U/L (21-72); AST 35 U/L (17-59); African American GFR (CKD) >90 (>60 ml/min/1.73 sqM); Albumin 4.3 g/dL (3.5-5.0); Alkaline Phosphatase 65 U/L (38-126); Anion Gap 8 mmol/L; Blood Urea Nitrogen 11 mg/dL (9-20); Calcium 9.9 mg/dL (8.4-10.2); Carbon Dioxide 26 mmol/L (22-30); Chloride 103 mmol/L (98-107); Glucose 103 mg/dL (74-99); Magnesium 1.9 mg/dL (1.6-2.3); Potassium 3.8 mmol/L (3.5-5.1); Sodium 137 mmol/L (137-145); Total Bilirubin 0.9 mg/dL (0.2-1.3); Total Protein 6.9 g/dL (6.3-8.2)
--- NOTE | 2019-03-30 14:12 | XR ---
EXAMINATION TYPE: XR chest 2V DATE OF EXAM: 03/30/2019 COMPARISON: April 30, 2015 HISTORY: Shortness of breath TECHNIQUE: Frontal and lateral views of the chest are obtained. FINDINGS: Scattered senescent parenchymal changes noted. Hyperinflation compatible with COPD. No evidence for infiltrate. No evidence for atelectasis. Heart size is stable. Mediastinal structures are stable and grossly unremarkable. No evidence for hilar prominence. Degenerative changes dorsal spine. IMPRESSION: 1. No evidence for acute pulmonary disease.
[2019-03-30] MEDS ORDERED: NITROGLYCERIN SL TABS 0.4 MG TAB SUBLINGUAL PRN (15:01)
[2019-03-30] MEDS ORDERED: ASPIRIN 81 MG PO STA (15:01)
[2019-03-30 16:31] VITALS: BMI 28.5
[2019-03-30] MEDS ORDERED: ALBUTEROL NEBULIZED 2.5 MG/3 ML INHALATION PRN (19:37)
[2019-03-30] MEDS ORDERED: ALPRAZolam 0.25 MG TAB PO PRN (19:37)
[2019-03-30] MEDS ORDERED: HYDROcodone/APAP 5-325MG 1 EACH TAB PO PRN (19:41)
[2019-03-30 20:26] LABS: Glucose,Whole Blood 186 mg/dL (75-99)
[2019-03-30] MEDS: GABAPENTIN 100 MG CAP PO SCH (20:30)
[2019-03-30] MEDS: hydrALAZINE HCL 50 MG TAB PO SCH (20:30)
[2019-03-30] MEDS: METOPROLOL TARTRATE 25 MG TAB PO SCH (20:30)
[2019-03-30] MEDS: metFORMIN 850 MG TAB PO SCH (20:30)
[2019-03-30] MEDS: FAMOTIDINE 20 MG TAB PO SCH (20:30)
[2019-03-30] MEDS: GLIMEPIRIDE 4 MG TAB PO SCH (20:30)
[2019-03-31 00:55] LABS: Cholesterol 113 mg/dL (<200); HDL Cholesterol 36 mg/dL (40-60); LDL Cholesterol,Calculated 51 mg/dL (0-99); Triglycerides 129 mg/dL (<150)
[2019-03-31 06:50] LABS: Glucose,Whole Blood 85 mg/dL (75-99)
[2019-03-31] MEDS: CLOPIDOGREL 75 MG TAB PO SCH (08:26)
[2019-03-31] MEDS: ASPIRIN 325 MG TAB PO SCH (08:26)
[2019-03-31] MEDS: FAMOTIDINE 20 MG TAB PO SCH ×2 (08:26→20:04)
[2019-03-31] MEDS: GLIMEPIRIDE 4 MG TAB PO SCH ×2 (08:26→20:04)
[2019-03-31] MEDS: metFORMIN 850 MG TAB PO SCH ×3 (08:26→20:05)
[2019-03-31] MEDS: hydrALAZINE HCL 50 MG TAB PO SCH ×3 (08:27→20:04)
[2019-03-31] MEDS: HYDROCHLOROTHIAZIDE 50 MG TAB PO SCH (08:27)
[2019-03-31] MEDS: GABAPENTIN 100 MG CAP PO SCH ×3 (08:27→20:04)
[2019-03-31] MEDS: METOPROLOL TARTRATE 25 MG TAB PO SCH (08:27)
[2019-03-31] MEDS ORDERED: NON-FORMULARY DRUG (Aspirin Ec 325 MG) PO SCH (09:00)
[2019-03-31] MEDS ORDERED: NITROGLYCERIN SL TABS 0.4 MG TAB SUBLINGUAL PRN (10:11)
[2019-03-31 11:31] LABS: Glucose,Whole Blood 193 mg/dL (75-99)
--- NOTE | 2019-03-31 12:18 | PN ---
PROGRESS NOTE CHIEF COMPLAINT: Chest pain with shortness of breath and diaphoresis. HISTORY OF PRESENT ILLNESS AND PHYSICAL EXAM: Details of this man's history and physical can be found in the initial workup. REVIEW OF SYSTEMS: He is not having any shortness of breath, chest pain, etc. PHYSICAL EXAMINATION: Breath sounds are diminished throughout due to his COPD. He had occasional rales and occasional rhonchi. Cardiac exam is normal. Abdomen is soft, nontender. IMPRESSION: 1. Chest pain. 2. Coronary artery disease. 3. Diaphoresis. 4. Shortness of breath. 5. Chronic obstructive pulmonary disease. 6. Diabetes. PLAN: Await recommendations from Cardiology and the balance of his studies. He will probably be able to go home today. Because of his ASCVD, smoking history and pain in the right low back area, echo of the abdominal aorta will be ordered. MMLINDA / GILLN: [id number] /
--- NOTE | 2019-03-31 12:26 | HP ---
HISTORY AND PHYSICAL CHIEF COMPLAINT: Chest pain with shortness of breath and diaphoresis as well as right low back pain. HISTORY OF PRESENT ILLNESS: This is another admission for this 64-year-old white male with a longstanding history of hypertension, ASCVD, coronary artery disease, and COPD. He was complaining of some right low back pain, which he has had on and off for quite some time, which is probably related to LS spine degenerative disc disease and arthritis. He also developed some chest discomfort along with shortness of breath and sweatiness and came to the emergency room. Studies were unremarkable, but he was admitted to rule out myocardial infarction. REVIEW OF SYSTEMS: He has had no syncope, neurologic deficits, change in vision or hearing, cough hemoptysis, purulent sputum production, pleurisy, orthopnea, PND, abdominal pain, nausea, vomiting, hematemesis, melena, hematochezia, jaundice, hepatitis, renal failure, hematuria, dysuria, history of renal or ureteral calculi, etc. Past medical history, family history, and personal and social histories demonstrate that he is not allergic to any medication. He is diabetic. MEDICATIONS: His medications include: 1. Vicodin 10 one q.4 p.r.n. 2. Xanax 0.25 at bedtime p.r.n. 3. Atorvastatin 80 mg at bedtime. 4. Metformin 850 mg 3 times a day. 5. Glimepiride 4 mg twice a day. 6. Hydrochlorothiazide 50 mg once a day. 7. Hydralazine 50 mg t.i.d. 8. Metoprolol 25 mg b.i.d. 9. Ranitidine 150 mg b.i.d. 10.Clopidogrel 75 mg once a day. The remainder of the history is unremarkable. Despite his COPD, he continues to smoke. PHYSICAL EXAMINATION: Blood pressure 140/70 with a pulse 66, respirations 16. He is afebrile. GENERAL: He appeared to be in no acute distress. Skin was dry and lymph nodes not enlarged. Head, ears, eyes, nose, mouth, and throat were normal. Neck veins not distended. Thyroid is not enlarged. Chest demonstrates increased AP diameter with poor breath sounds and occasional rales, rhonchi and wheezing. Cardiac exam is normal sinus rhythm. No murmurs or extra sounds. Abdomen is soft and nontender. Extremities are normal. Neurologically, he is intact. He is admitted to the hospital with diagnoses: 1. Chest pain, shortness of breath and diaphoresis. 2. History of coronary artery disease. 3. Hypertension. 4. Chronic obstructive pulmonary disease. 5. Right low back pain. PLAN: 1. Bed rest. 2. IV fluids. 3. Serial EKGs and enzymes. 4. Cardiology consult. DIEUDONNE / EARNEST: [id number] /
[2019-03-31] MEDS ORDERED: ISOSORBIDE MONONITRATE ER 30 MG TAB.ER.24H PO SCH (12:45)
--- NOTE | 2019-03-31 13:14 | P.CRDCN ---
History of Present Illness History of present illness: This is a pleasant 64-year-old male past medical history significant for coronary artery disease status post multiple stent placements and chronic lesion in the RCA, hypertension, dyslipidemia, COPD, peripheral vascular disease, abdominal aortic aneurysm, diabetes mellitus and chronic nicotine dependence. He follows in the office with Dr. Beckham. We have been asked to see him in consultation for chest pain. He is seen and examined resting comfortably in bed with multiple complaints. He states for the previous 1-year he has been feeling a nagging pain in the right flank region that is sometimes associated with nausea and is positional. Thursday while sitting down at home he recalls becoming acutely light headed, diaphoretic and nauseated. He denies palpitations, chest pain or shortness of breath at that time. This episode was very brief and resolved on its own. Yesterday he was having a exacerbation of his right flank pain and it began radiating around to the upper anterior chest on the left side. The pain was described as a tight sensation with a nagging feeling. There was no radiation to the arms, back, neck or jaw. There was no associated dizziness, nausea, vomiting, shortness of breath, palpitations or diaphoresis at that time. He recently in September underwent catheterization secondary to abnormal Lexiscan stress test and was found to have mild in-stent restenosis to the long stented segment of the proximal to mid LAD approximately 20-30% with 50-60% plaque distally, long lesion in the proximal to mid RCA approximately 90% unchanged from previous study 2011. No obstructive disease of the left main or circumflex arteries noted. Maximum medical therapy recommended. EKG reveals sinus bradycardia heart rate 42. Chronic when compared to previous EKG's. Chest xray is negative for an acute cardiopulmonary process. Laboratory data reviewed, WBC 6, hgb 15.6, plt 235, sodium 137, potassium 3.8, creatinine 0.71, cardiac enzymes negative x3, magnesium 1.9, Current cardiac medications include lopressor 25 mg BID, atorvastatin 80 mg daily, plavix 75 mg daily, hydrochlorothiazide 50 mg daily, hydralazine 50 mg TID and aspirin 81 mg daily. Most recent echocardiogram obtained in the office reveals preserved LV systolic function with EF 55% with mild MR. At the time of my exam: CONSTITUTIONAL: Denies fever. Denies chills. EYES: Denies blurred vision. Denies vision changes. Denies eye pain. EARS, NOSE, MOUTH & THROAT: Denies headache. Denies sore throat. Denies ear pain. CARDIOVASCULAR: Denies chest pain. Denies shortness of breath. Denies orthopnea. Denies PND. Denies palpitations. RESPIRATORY: Denies cough. GASTROINTESTINAL: Denies abdominal pain. Denies diarrhea. Denies constipation. Denies nausea. Denies vomiting. MUSCULOSKELETAL: Denies myalgias. Complains of right flank pain. INTEGUMENTARY: Denies pruitis. Denies rash. NEUROLOGIC: Denies numbness. Denies tingling. Denies weakness. PSYCHIATRIC: Denies anxiety. Denies depression. ENDOCRINE: Denies fatigue. Denies weight change. Denies polydipsia. Denies polyurina. GENITOURINARY: Denies burning, hematuria or urgency with micturation. HEMATOLOGIC: Denies history of anemia. Denies bleeding. Blood pressure 121/63 heart rate 44 afebrile maintaining oxygen saturation on room air GENERAL: This is a 64-year-old male in no apparent distress at the time of my examination. HEENT: Head is atraumatic, normocephalic. Pupils are equal, round. Sclerae anicteric. Conjunctivae are clear. Mucous membranes of the mouth are moist. Neck is supple. There is no jugular venous distention. No carotid bruit is heard. LUNGS: Clear to auscultation no wheezes, rales or rhonchi. No chest wall tenderness is noted on palpation or with deep breathing. HEART: Regular rate and rhythm without murmurs, rubs or gallops. S1 and S2 heard. Diminished bilaterally. ABDOMEN: Soft, nontender. Bowel sounds are heard. No organomegaly noted. EXTREMITIES: No evidence of peripheral edema and no calf tenderness noted. Bilateral lower extremity color change. VASCULAR: Radial and dorsalis pedis pulses palpated, no evidence of clubbing. NEUROLOGIC: Patient is awake, alert and oriented x3. ASSESSMENT Precordial chest pain, pain starts in the right flank region and radiates to the chest. An acute coronary event has been ruled out. Sinus bradycardia, asymptomatic Right flank pain associated with nausea intermittently History of coronary artery disease, recent cath reviewed Hypertension Dyslipidemia Diabetes mellitus Abdominal aortic aneurysm Peripheral vascular disease Chronic nicotine dependence PLAN An acute coronary event has been ruled out. Obtain 2D echocardiogram and doppler study to assess cardiac structure and function. Initiate on small dose of long acting nitrate, imdur 30 mg daily. Decrease lopressor to 12.5 mg BID. Check d-dimer. Consider GI imaging or evaluation of right flank discomfort. Ongoing telemetry monitoring. Thank you kindly for this consultation. Nurse Practitioner note has been reviewed, I agree with a documented findings and plan of care. Patient was seen and examined. Past Medical History Past Medical History: Coronary Artery Disease (CAD), Chest Pain / Angina, COPD, Deep Vein Thrombosis (DVT), GERD/Reflux, Hyperlipidemia, Hypertension, Osteoarthritis (OA), Pneumonia Additional Past Medical History / Comment(s): migraine; havasupai, hole in left eardrum, PVD; varicose veins; psorasis; chronic back pain. restless leg syndrome, stated boarderline diabetic- takes metformin, trying to control with diet and exercise History of Any Multi-Drug Resistant Organisms: None Reported Past Surgical History: Back Surgery, Hernia Repair, Joint Replacement Additional Past Surgical History / Comment(s): hardware in back; rt knee replaced x2; egd; 4 stents (2018); left leg bypass graft, inguinal hernia.ABD AO RTOGRAM AND LYNDA LOWER EXTREMITIY RUN OFF. triple A being monitored Past Anesthesia/Blood Transfusion Reactions: No Reported Reaction Date of Last Stent Placement:: JUN 2011 Past Psychological History: Anxiety, Depression Additional Psychological History / Comment(s): NOT CURRENTLY TAKING MEDS FOR AN XIETY OR DEPRESSION Smoking Status: Current some day smoker Past Alcohol Use History: Occasional Additional Past Alcohol Use History / Comment(s): STARTED SMOKING AT AGE 10, SMOKED 15 CIG PER DAY -HAS CUT DOWN TO 3 CIGS PER DAY Past Drug Use History: Marijuana Additional Drug Use History / Comment(s): STATED USED MARIJUANA LAST ON HIS BIRTHDAY - Past Family History Father Family Medical History: Cancer Additional Family Medical History / Comment(s): ALZHEIMERS Brother(s) Family Medical History: Cancer Additional Family Medical History / Comment(s): LUNG CA Mother Family Medical History: Cancer Additional Family Medical History / Comment(s): PVD, LIVER PROBLEMS Medications and Allergies Home Medications Medication Instructions Recorded Confirmed Type Clopidogrel [Plavix] 75 mg PO DAILY 01/12/14 03/30/19 History Gabapentin [Neurontin] 100 mg PO TID 01/12/14 03/30/19 History Hydrocodone/Acetaminophen 1 tab PO Q4H PRN 01/12/14 03/30/19 History [Hydrocodone/Acetaminophen 10-325] Nitroglycerin Sl Tabs [Nitrostat] 0.4 mg SUBLINGUAL Q5M PRN 01/12/14 03/30/19 History Ranitidine HCl [Zantac] 150 mg PO BID 01/12/14 03/30/19 History Ergocalciferol [Vitamin D2 50,000 unit PO QMONTH 06/22/14 03/30/19 History (DRISDOL)] Aspirin EC [Ecotrin] 325 mg PO DAILY 06/23/14 03/30/19 History ALPRAZolam [Xanax] 0.25 mg PO HS PRN 04/30/15 03/30/19 History Albuterol Inhaler [Ventolin Hfa 1 - 2 puff INHALATION RT-Q6H PRN 04/30/15 03/30/19 History Inhaler] Metoprolol Tartrate [Lopressor] 25 mg PO BID #60 tab 05/01/15 03/30/19 Rx Hydrochlorothiazide 50 mg PO DAILY 02/03/17 03/30/19 History hydrALAZINE HCL 50 mg PO TID 02/03/17 03/30/19 History Glimepiride [Amaryl] 4 mg PO BID 07/19/18 03/30/19 History metFORMIN HCL [Glucophage] 850 mg PO TID 07/19/18 03/30/19 History Atorvastatin [Lipitor] 80 mg PO DAILY 09/09/18 03/30/19 History Allergies Allergy/AdvReac Type Severity Reaction Status Date / Time No Known Allergies Allergy Verified 03/30/19 13:40 Physical Exam Vitals: Vital Signs Temp Pulse Pulse Pulse Resp BP BP 03/31/19 11:50 98 F 44 L 16 121/63 03/31/19 07:34 97.6 F 59 L 18 143/74 03/31/19 07:04 03/31/19 03:52 97.9 F 45 L 16 142/69 03/31/19 02:21 16 03/30/19 23:31 98.2 F 43 L 16 116/59 03/30/19 23:27 16 03/30/19 20:00 03/30/19 19:27 98.1 F 46 L 16 107/57 03/30/19 16:16 97.7 F 44 L 16 137/65 03/30/19 15:15 41 L 18 155/90 03/30/19 15:01 44 L 03/30/19 14:00 41 L 18 Pulse Ox 03/31/19 11:50 97 03/31/19 07:34 96 03/31/19 07:04 98 03/31/19 03:52 98 03/31/19 02:21 03/30/19 23:31 97 03/30/19 23:27 03/30/19 20:00 03/30/19 19:27 97 03/30/19 16:16 97 03/30/19 15:15 97 03/30/19 15:01 03/30/19 14:00 Intake and Output 03/30/19 03/31/19 03/31/19 22:59 06:59 14:59 Intake Total 436 Balance 436 Intake: Oral 436 Other: # Voids 1 1 Results 03/30/19 13:07 03/30/19 13:07 Cardiac Enzymes 03/30/19 03/30/19 03/30/19 Range/Units 13:07 13:07 18:52 AST 35 (17-59) U/L Troponin I <0.012 <0.012 (0.000-0.034) ng/mL 03/31/19 Range/Units 00:37 AST (17-59) U/L Troponin I <0.012 (0.000-0.034) ng/mL Coagulation 03/30/19 Range/Units 13:07 PT 9.9 (9.0-12.0) sec APTT 22.8 (22.0-30.0) sec Lipids 03/31/19 Range/Units 00:37 Triglycerides 129 (<150) mg/dL Cholesterol 113 (<200) mg/dL HDL Cholesterol 36 L (40-60) mg/dL CBC 03/30/19 Range/Units 13:07 WBC 6.0 (3.8-10.6) k/uL RBC 4.70 (4.30-5.90) m/uL Hgb 15.6 (13.0-17.5) gm/dL Hct 45.4 (39.0-53.0) % Plt Count 235 (150-450) k/uL Comprehensive Metabolic Panel 03/30/19 Range/Units 13:07 Sodium 137 (137-145) mmol/L Potassium 3.8 (3.5-5.1) mmol/L Chloride 103 (98-107) mmol/L Carbon Dioxide 26 (22-30) mmol/L BUN 11 (9-20) mg/dL Creatinine 0.71 (0.66-1.25) mg/dL Glucose 103 H (74-99) mg/dL Calcium 9.9 (8.4-10.2) mg/dL AST 35 (17-59) U/L ALT 45 (21-72) U/L Alkaline Phosphatase 65 (38-126) U/L Total Protein 6.9 (6.3-8.2) g/dL Albumin 4.3 (3.5-5.0) g/dL Current Medications Generic Name Dose Route Start Last Admin Trade Name Freq PRN Reason Stop Dose Admin Hydrocodone Bitart/Acetaminophen 1 each 03/30/19 19:41 [place] 5-325 PO Q8HR PRN Pain Albuterol Sulfate 2.5 mg 03/30/19 19:37 Ventolin Nebulized INHALATION RT-Q6H PRN Shortness Of Breath Alprazolam 0.25 mg 03/30/19 19:37 Xanax PO HS PRN Anxiety Aspirin 325 mg 03/31/19 09:00 03/31/19 08:26 Aspirin PO 325 mg DAILY HUBERT Administration Clopidogrel Bisulfate 75 mg 03/31/19 09:00 03/31/19 08:26 Plavix PO 75 mg DAILY HUBERT Administration Famotidine 20 mg 03/30/19 21:00 03/31/19 08:26 Pepcid PO 20 mg BID HUBERT Administration Gabapentin 100 mg 03/30/19 22:00 03/31/19 08:27 Neurontin PO 100 mg TID HUBERT Administration Glimepiride 4 mg 03/30/19 21:00 03/31/19 08:26 Amaryl PO 4 mg BID HUBERT Administration Hydralazine HCl 50 mg 03/30/19 22:00 03/31/19 08:27 Apresoline PO 50 mg TID HUBERT Administration Hydrochlorothiazide 50 mg 03/31/19 09:00 03/31/19 08:27 Hydrodiuril PO 50 mg DAILY HUBERT Administration Metformin HCl 850 mg 03/30/19 22:00 03/31/19 08:26 Glucophage PO 850 mg TID HUBERT Administration Metoprolol Tartrate 25 mg 03/30/19 21:00 03/31/19 08:27 Lopressor PO 25 mg BID HUBERT Administration Nitroglycerin 0.4 mg 03/30/19 15:01 Nitrostat SUBLINGUAL Q5M PRN Chest Pain Intake and Output 03/30/19 03/31/19 03/31/19 22:59 06:59 14:59 Intake Total 436 Balance 436 Intake: Oral 436 Other: # Voids 1 1 03/30/19 13:07 03/30/19 13:07
--- NOTE | 2019-03-31 16:36 | CT ---
CT CHEST FOR PULMONARY EMBOLISM. EXAMINATION TYPE: CT chest angio for PE DATE OF EXAM: 03/31/2019 INDICATION: Chest pain CT DLP: 366 mGycm, Automated exposure control for dose reduction was used. CONTRAST: Patient injected with 100 mL of Isovue 370. COMPARISON: 11/01/2014 TECHNIQUE: CT of the chest is performed on a spiral scan at 2 mm thick sections. Study is performed with intravenous contrast timed for evaluation for pulmonary embolism. This will limit additional po rtions of the evaluation. 3-D MIP images reconstructed by the technologist are reviewed on the compu ter in the coronal and sagittal planes. FINDINGS: No persistent filling defects are evident to suggest an acute pulmonary embolism. No mediastinal or hilar adenopathy enlarged by CT criteria is evident. The ascending aorta diameter at the level of the main pulmonary artery is 3.9 cm. The main pulmonary artery diameter at the bifur cation is 3.1 cm. There may be some atelectasis in the posterior right lung base. Limited CT section through the upper abdomen. There is thrombus within the descending thoracic aorta extending into the abdominal aorta causing some narrowing of the flow lumen. Within the descending t horacic aorta which contains a small amount of contrast on the prior study of 2014, the findings were comparable appears similar. Maximum AP diameter of the abdominal aorta is 3.1 cm. IMPRESSIONS: 1. No acute pulmonary embolism.
[2019-03-31 16:44] LABS: Glucose,Whole Blood 88 mg/dL (75-99)
[2019-03-31 19:35] VITALS: RESP 16
[2019-03-31] MEDS: METOPROLOL TARTRATE 12.5 MG TAB PO SCH (20:04)
[2019-03-31 20:07] LABS: Glucose,Whole Blood 126 mg/dL (75-99)
[2019-04-01 04:33] VITALS: TEMP 97.9
[2019-04-01 06:36] LABS: Glucose,Whole Blood 83 mg/dL (75-99)
--- NOTE | 2019-04-01 07:29 | ECHOF ---
Referral Reason:cp MEASUREMENTS -------- HEIGHT: 172.7 cm WEIGHT: 85.3 kg BP: 143/74 RVIDd: 3.7 cm (< 3.3) IVSd: 1.1 cm (0.6 - 1.1) LVIDd: 4.8 cm (3.9 - 5.3) LVPWd: 1.0 cm (0.6 - 1.1) IVSs: 1.6 cm LVIDs: 2.9 cm LVPWs: 1.7 cm LAESV Index (A-L): 24.55 ml/m Ao Diam: 2.7 cm (2.0 - 3.7) AV Cusp: 2.0 cm (1.5 - 2.6) LA Diam: 4.1 cm (2.7 - 3.8) MV E Robert: 0.88 m/s MV DecT: 226 ms MV A Robert: 0.53 m/s MV E/A Ratio: 1.67 RAP: 5.00 mmHg RVSP: 20.31 mmHg FINDINGS -------- Sinus rhythm. This was a technically adequate study. There is borderline concentric left ventricular hypertrophy. Overall left ventricular systolic func tion is normal with, an EF between 55 - 60 %. The diastolic filling pattern is normal for the age o f the patient 10.28. The right ventricle is mildly enlarged. Normal LA size by volume 22+/-6 ml/m2. The right atrial size is normal. Interatrial and interventricular septum intact. The aortic valve is trileaflet and appears structurally normal. There is no evidence of aortic regu rgitation. There is no evidence of aortic stenosis. There is trace mitral regurgitation. Trace tricuspid regurgitation present. There is no evidence of pulmonary hypertension. The right ventricular systolic pressure, as measured by Doppler, is 20.31mmHg. Trace/mild (physiologic) pulmonic regurgitation. The aortic root size is normal. Normal inferior vena cava with normal inspiratory collapse consistent with estimated right atrial pre ssure of 5 mmHg. There is no pericardial effusion. CONCLUSIONS -------- 1. Sinus rhythm. 2. This was a technically adequate study. 3. There is borderline concentric left ventricular hypertrophy. 4. Overall left ventricular systolic function is normal with, an EF between 55 - 60 %. 5. The diastolic filling pattern is normal for the age of the patient 10.28 6. The right ventricle is mildly enlarged. 7. Normal LA size by volume 22+/-6 ml/m2. 8. The right atrial size is normal. 9. Interatrial and interventricular septum intact. 10. The aortic valve is trileaflet and appears structurally normal. 11. There is no evidence of aortic regurgitation. 12. There is no evidence of aortic stenosis. 13. There is trace mitral regurgitation. 14. Trace tricuspid regurgitation present. 15. There is no evidence of pulmonary hypertension. 16. The right ventricular systolic pressure, as measured by Doppler, is 20.31mmHg. 17. Trace/mild (physiologic) pulmonic regurgitation. 18. The aortic root size is normal. 19. Normal inferior vena cava with normal inspiratory collapse consistent with estimated right atrial pressure of 5 mmHg. 20. There is no pericardial effusion. PLANT PHYSIOLOGY TEACHER: Vanessa Palumbo RDCS
[2019-04-01 08:32] VITALS: BP 143/85
[2019-04-01] MEDS: FAMOTIDINE 20 MG TAB PO SCH (09:34)
[2019-04-01] MEDS: CLOPIDOGREL 75 MG TAB PO SCH (09:34)
[2019-04-01] MEDS: ASPIRIN 325 MG TAB PO SCH (09:34)
[2019-04-01] MEDS: GABAPENTIN 100 MG CAP PO SCH (09:34)
[2019-04-01] MEDS: GLIMEPIRIDE 4 MG TAB PO SCH (09:35)
[2019-04-01] MEDS: HYDROCHLOROTHIAZIDE 50 MG TAB PO SCH (09:35)
[2019-04-01] MEDS: hydrALAZINE HCL 50 MG TAB PO SCH (09:35)
[2019-04-01] MEDS: metFORMIN 850 MG TAB PO SCH (09:36)
[2019-04-01] MEDS: METOPROLOL TARTRATE 12.5 MG TAB PO SCH (09:36)
--- NOTE | 2019-04-01 10:13 | P.PN ---
Subjective This is a pleasant 64-year-old male past medical history significant for coronary artery disease status post multiple stent placements and chronic lesion in the RCA, hypertension, dyslipidemia, COPD, peripheral vascular disease, abdominal aortic aneurysm, diabetes mellitus and chronic nicotine dependence. He follows in the office with Dr. Beckham. We have been asked to see him in consultation for chest pain. He is seen and examined resting comfortably in bed with multiple complaints. He states for the previous 1-year he has been feeling a nagging pain in the right flank region that is sometimes associated with nausea and is positional. Thursday while sitting down at home he recalls becoming acutely light headed, diaphoretic and nauseated. He denies palpitations, chest pain or shortness of breath at that time. This episode was very brief and resolved on its own. Yesterday he was having a exacerbation of his right flank pain and it began radiating around to the upper anterior chest on the left side. The pain was described as a tight sensation with a nagging feeling. There was no radiation to the arms, back, neck or jaw. There was no associated dizziness, nausea, vomiting, shortness of breath, palpitations or diaphoresis at that time. He recently in September underwent catheterization secondary to abnormal Lexiscan stress test and was found to have mild in-stent restenosis to the long stented segment of the proximal to mid LAD approximately 20-30% with 50-60% plaque distally, long lesion in the proximal to mid RCA appro ximately 90% unchanged from previous study 2011. No obstructive disease of the left main or circumflex arteries noted. Maximum medical therapy recommended. 04/01/2019 Pt is seen and examined laying flat in bed sleeping. He states he has been up and walking around with no reoccurrence of chest discomfort. He denies dizziness, light headed, shortness of breath or palpitations. Blood pressure 143/85 heart rate 46 afebrile and maintaining oxygen saturation on room air. Echocardiogram obtained reveals preserved LV systolic function with EF 55-60%, normal diastolic filling pattern and no pulmonary hypertension. CTA chest negative for PE with ongoing narrowing of the descending thoracic aorta exte nding into the abdominal aorta. No change from previous study from 2015. GENERAL: This is a 64-year-old male in no apparent distress at the time of my examination. HEENT: Head is atraumatic, normocephalic. Pupils are equal, round. Sclerae anicteric. Conjunctivae are clear. Mucous membranes of the mouth are moist. Neck is supple. There is no jugular venous distention. No carotid bruit is heard. LUNGS: Clear to auscultation no wheezes, rales or rhonchi. No chest wall tenderness is noted on palpation or with deep breathing. HEART: Regular rate and rhythm without murmurs, rubs or gallops. S1 and S2 heard. Diminished bilaterally. EXTREMITIES: No evidence of peripheral edema and no calf tenderness noted. Bilateral lower extremity color change. ASSESSMENT Precordial chest pain, pain starts in the right flank region and radiates to the chest. An acute coronary event has been ruled out. Sinus bradycardia, asymptomatic Right flank pain associated with nausea intermittently History of coronary artery disease, recent cath reviewed Hypertension Dyslipidemia Diabetes mellitus Abdominal aortic aneurysm Peripheral vascular disease Chronic nicotine dependence PLAN Stable from a cardiac perspective. An acute event has been ruled out. No further chest pain with addition of imdur. Follow up with Dr. Beckham upon discharge. Nurse Practitioner note has been reviewed, I agree with a documented findings and plan of care. Patient was seen and examined. Objective - Vital Signs Vital signs: Vital Signs Temp 97.9 F 04/01/19 08:00 Pulse 46 L 04/01/19 08:00 Resp 16 04/01/19 08:00 BP 143/85 04/01/19 08:00 Pulse Ox 96 04/01/19 08:00 Intake & Output 03/31/19 04/01/19 04/01/19 18:59 06:59 18:59 Intake Total 240 Balance 240 Intake: Oral 240 Other: # Voids 1 - Labs CBC & Chem 7: 03/30/19 13:07 03/30/19 13:07 Labs: Abnormal Lab Results - Last 24 Hours (Table) 03/31/19 03/31/19 03/31/19 Range/Units 11:29 13:43 20:05 D-Dimer 0.71 H (<0.60) mg/L FEU POC Glucose (mg/dL) 193 H 126 H (75-99) mg/dL
[2019-04-01 10:28] VITALS: PULSE 42
--- NOTE | 2019-04-01 11:00 | DS ---
DISCHARGE SUMMARY CHIEF COMPLAINT: Right low back pain and chest pain. HISTORY OF PRESENT ILLNESS AND PHYSICAL EXAM: Details of this man's history and physical can be found in the initial workup. LABORATORY STUDIES: While he was in the hospital he had laboratory studies, details of which can be found in the laboratory section of his chart. COURSE IN HOSPITAL: After admission he was placed on bedrest, started on intravenous fluids and he had serial EKGs and enzymes. He was seen by Cardiology who only recommended long-acting nitrates. Because of his back pain, he had an ultrasound of the abdomen to rule out aortic disease, but the report is not back at the time of dictation. He will go home on his usual diet and activity and be seen in the office in several days. FINAL DIAGNOSES: 1. Chest pain. 2. Angina pectoris. 3. Coronary artery disease. 4. Chronic obstructive pulmonary disease. 5. Right low back pain. 6. Hypertension. OPERATIONS: None. CONSULTATION: Cardiology. He is improved. MMODL / GILLN: [id number] /
[2019-04-01 11:34] LABS: Glucose,Whole Blood 113 mg/dL (75-99)
== END 2019-04-01 12:35 | disposition home or self-care (01) ==
LOC: EC 12:34 → 1SOBS 15:01
PROVIDERS: ADMIT Family Medicine; ATTEND Family Medicine
DX: R07.89 Other chest pain (principal); R07.2 Precordial pain; R00.1 Bradycardia, unspecified; M54.5 Low back pain; R00.2 Palpitations; R60.9 Edema, unspecified; T82.855A Stenosis of coronary artery stent, initial encounter; J44.9 Chronic obstructive pulmonary disease, unspecified; I10 Essential (primary) hypertension; I25.119 Atherosclerotic heart disease of native coronary artery with unspecified angina pectoris; E78.5 Hyperlipidemia, unspecified; R10.9 Unspecified abdominal pain; I71.4 Abdominal aortic aneurysm, without rupture; G43.909 Migraine, unspecified, not intractable, without status migrainosus; E11.51 Type 2 diabetes mellitus with diabetic peripheral angiopathy without gangrene; K21.9 Gastro-esophageal reflux disease without esophagitis; M19.90 Unspecified osteoarthritis, unspecified site; G25.81 Restless legs syndrome; I83.90 Asymptomatic varicose veins of unspecified lower extremity; G89.29 Other chronic pain; H91.90 Unspecified hearing loss, unspecified ear; F41.9 Anxiety disorder, unspecified; F32.9 Major depressive disorder, single episode, unspecified; F17.210 Nicotine dependence, cigarettes, uncomplicated; Z86.718 Personal history of other venous thrombosis and embolism; Z87.01 Personal history of pneumonia (recurrent); Z95.5 Presence of coronary angioplasty implant and graft; Z95.9 Presence of cardiac and vascular implant and graft, unspecified; Z86.73 Personal history of transient ischemic attack (TIA), and cerebral infarction without residual deficits; Z79.84 Long term (current) use of oral hypoglycemic drugs; Z79.02 Long term (current) use of antithrombotics/antiplatelets; Z79.891 Long term (current) use of opiate analgesic; Z79.82 Long term (current) use of aspirin; Z79.899 Other long term (current) drug therapy; Z82.0 Family history of epilepsy and other diseases of the nervous system; Z80.1 Family history of malignant neoplasm of trachea, bronchus and lung; Z82.49 Family history of ischemic heart disease and other diseases of the circulatory system; Z83.49 Family history of other endocrine, nutritional and metabolic diseases
CPT/HCPCS: 99291; 36415; 94760; 93005; 93306; 85379; 83880; 80061; 80053; 83735; 84484 ×2; 85025; 85610; 85730; 71046; 71275; G0378 ×3; Q9967

== ENCOUNTER → 2023-02-17 | Outpatient (CLI) | payer MEDICARE, OTHER ==
[2023-02-17 13:54] LABS: African American GFR (CKD) >90 (>60 ml/min/1.73 sqM); Blood Urea Nitrogen 11 mg/dL (9-20); Non-African American GFR(CKD) >90 (>60 ml/min/1.73 sqM)
--- NOTE | 2023-02-17 14:44 | CT ---
EXAMINATION TYPE: CT angio abdomen DATE OF EXAM: 02/17/2023 COMPARISON: 11/18/2018 HISTORY: AAA CT DLP: 574.9 mGycm CONTRAST: CTA thoracic and abdominal aorta with 3-D reconstruction is performed and without and with IV Contras t, patient injected with 100 mL of Isovue 370. Contrast CTA of the abdominal aorta was performed from the lung base through the base of the pelvis. 3-D reconstruction imaging obtained at a separate workstation. CONTRAST CT ABDOMEN AND PELVIS ABDOMINAL AORTA: Infrarenal abdominal aortic aneurysm measuring 4.8 cm AP dimension with mural thromb us. Patent lumen measures 2.5 cm. Aneurysm is 8.5 cm in length with a neck from the right renal arter y of 1.4 cm and left renal artery of 1.5 cm. Celiac axis and SMA are patent. Iliac vessels are nonane urysmal. LIVER/GB- No significant abnormality is seen. PANCREAS- No significant abnormality is seen. SPLEEN- No significant abnormality is seen. ADRENALS- No significant abnormality is seen. KIDNEYS/BLADDER- No significant abnormality is seen. BOWEL- No Significant abnormality GENITAL ORGANS: No gross abnormality seen. LYMPH NODES- No greater than 1cm abdominal or pelvic lymph nodes areappreciated. OSSEOUS STRUCTURES- No significant abnormality is seen. OTHER- No significant abnormality is seen. IMPRESSION- 1. Infrarenal abdominal aortic aneurysm.
== END | disposition home or self-care (01) ==
LOC: RADCTMAIN 13:14
PROVIDERS: ATTEND Internal Medicine Interventional Cardiology
DX: I71.43 Infrarenal abdominal aortic aneurysm, without rupture (principal)
CPT/HCPCS: 82565; 84520; 74175; 36415; Q9967

== ENCOUNTER → 2023-06-03 | Outpatient (CLI) | payer MEDICARE, OTHER ==
--- NOTE | 2023-06-04 09:49 | MR ---
EXAMINATION TYPE: MR Prostate wo/w con DATE OF EXAM: 06/03/2023 9:35 AM COMPARISON: None. CLINICAL INDICATION:Male, 68 years old with history of R97.20 ELEVATED PROSTATE SPECIFIC ANTIGEN [PSA ]; Elevated PSA TECHNIQUE: Multi-planar, multi-sequence imaging of the pelvis is performed prior to and following the uncomplicated administration of bolus intravenous gadolinium. CONTRAST: 8 Gadavist Interpretive Criteria: PI-RADS v2.1 SERUM PSA: 10.0 05/08/2023. 9.57 on 02/13/2023. 7.2 on 06/20/2022. SURGICAL PATHOLOGY: No data available. FINDINGS: Prostatic dimensions: 4.6 x 4.0 x 2.9 cm. "Bullet" Volume:34.92 (PSA density=0.29 ng/mL/mL) CENTRAL GLAND (Central and Transition Zones/CZ+TZ): Multiple bilateral, heterogenous appearing hypertrophic stromal nodules, without suspicious lesion. M edian lobe hypertrophy with protrusion into the base of the bladder. (PI-RADS 2) PERIPHERAL ZONE (PZ): Subtle area within the left posterior peripheral zone involving the apex/right gland with high DWI si gnal measuring 11 x 8 mm with lower ADC signal. (PI-RADS 3) SEMINAL VESICLES (SV): Symmetric and unremarkable. PERIPROSTATIC TISSUES: Unremarkable. LYMPH NODES: No enlarged pelvic lymph node. REMAINING PELVIS: Bladder wall is within normal limits given distention. No abnormal free or organized intrapelvic fluid collection. No pathologic bowel dilation or mural thickening. Right fat and fluid containing containing inguinal hernia Tortuous vessels seen in the anterior lower pelvic subcutaneous tissues. OSSEOUS STRUCTURES: No suspicious osseous abnormality. IMPRESSION: 1. PI-RADS 3 lesion left posterior peripheral zone apex/mid gland measuring 11 x 8 mm 2. Mild BPH, estimated gland volume 34.92 mL.
== END | disposition home or self-care (01) ==
LOC: RADMRIMAIN 08:13
PROVIDERS: ATTEND Urology
DX: R97.20 Elevated prostate specific antigen [PSA] (principal)
CPT/HCPCS: 72197; A9585

== ENCOUNTER → 2024-09-09 | Outpatient (CLI) | payer MEDICARE, OTHER ==
[2024-09-09 12:54] LABS: African American GFR (CKD) >90 (>60 ml/min/1.73 sqM); Blood Urea Nitrogen 10 mg/dL (9-20); Non-African American GFR(CKD) >90 (>60 ml/min/1.73 sqM)
--- NOTE | 2024-09-09 17:17 | CT ---
EXAMINATION TYPE: CT angio abd aorta w/Runoff CT DLP: 1115.6 mGycm, Automated exposure control for dose reduction was used. DATE OF EXAM: 09/09/2024 1:58 PM COMPARISON: CTA abdomen 02/17/2023, CT abdomen and pelvis 11/28/2018, 07/19/2018 CLINICAL INDICATION:Male, 69 years old with history of I71.40 ABDOMINAL AORTIC ANEURYSM; ABDOMINAL AO RTIC ANEURYSM AND LEFT LEG CIRCULATION ISSUES. TECHNIQUE: Multiple thin slice sub-millimeter images were obtained through the abdomen, pelvis, and l ower extremities before and after administration of contrast. Patient was given Isovue 370, 100 cc i ntravenously. 3-D reconstructed images and maximum intensity projection images were obtained of the abdomen, pelvis, and lower extremities. FINDINGS: CTA Abdomen and pelvis: The descending thoracic aorta measures up to 3.5 cm in diameter with increasi ng eccentric mural thrombus identified. Mild increase in size and infrarenal fusiform abdominal aorti c aneurysm measuring 5.3 x 5.0 cm, previously 5.1 x 4.7 cm when measured with similar technique. No e vidence for intramural hematoma on noncontrast imaging. Prominent mural thrombus identified within th e aneurysm sac with intraluminal calcification. The opacified portion of the abdominal aorta aneurysm measures up to 2.5 cm. Atherosclerotic plaquing is identified within the abdominal aorta. The origi ns of the superior mesenteric artery, renal arteries, inferior mesenteric artery, and celiac axis are patent. Atherosclerotic plaquing with some mural thrombus formation is identified in the common diana ac arteries. The right internal and external iliac arteries are patent. The left external iliac eduar ry is patent. There is occlusion of the left internal iliac artery after its origin with distal recon stitution at its bifurcation. CTA Lower extremities: Right: The common femoral arteries patent. There is long segment occlusion of the distal right superf icial femoral artery. The popliteal artery is poorly visualized due to streak artifact from arthropla sty. There appears to be diminutive appearance of the inferior visualized portion of the popliteal ar micheline. The anterior tibial artery is identified emanating from the popliteal artery demonstrates dimin utive patent appearance crossing the ankle joint. There is poor visualization of the proximal portion of the tibioperoneal trunk with the distal portion well opacified. The peroneal and posterior tibial arteries are opacified with the posterior tibial artery crossing the ankle joint. Poor visualization of the distal peroneal artery. Left: The common femoral arteries patent. Postsurgical changes with short segment patent stent involv ing the proximal superficial femoral artery. There is short segment occlusion of the distal superfici al femoral artery with diminutive distal reconstitution. The popliteal artery is diminutive with mult isegment occlusion of the distal portion. The anterior tibial artery is patent and crosses the ankle joint. Nonvisualization of the tibioperoneal trunk with distal reconstitution of the peroneal and pos terior tibial arteries which cross the ankle joint. VISCERA: The liver, spleen, adrenal glands, kidneys, pancreas, and gallbladder are not optimally enha nced due the arterial phase utilized. LIVER: Unremarkable GALLBLADDER AND BILE DUCTS: Unremarkable. PANCREAS: Unremarkable. SPLEEN: Unremarkable. ADRENAL GLANDS: Unremarkable. KIDNEYS AND URETERS: No evidence of hydronephrosis or renal calculus. The kidneys enhance symmetrical ly. PELVIS BLADDER: Unremarkable REPRODUCTIVE: Coarse calcifications of the prostate gland are identified. Calcification of the bilate ral fossa diaphragms which can be seen with diabetes. ABDOMEN & PELVIS STOMACH AND BOWEL: Stomach and duodenum are unremarkable. No focal bowel wall thickening or surroundi ng inflammatory changes. No evidence of bowel obstruction. PERITONEUM: No evidence of pneumoperitoneum or free fluid. VASCULATURE: No evidence of aortic aneurysm. MUSCULOSKELETAL: No acute osseous abnormalities. Postsurgical changes of the lumbar spine with bilate ral pedicular screws and rods and disc spacer involving L3-L4 with laminectomies. Multilevel facet ar thropathy of the lumbar spine. Multilevel degenerative disc disease. Postsurgical changes from right total knee arthroplasty. LYMPH NODES: No gross evidence for lymphadenopathy. SOFT TISSUE/ABDOMINAL WALL: Tiny fat filled hernia. Multiple collateral vessels identified within the anterior pubic soft tissues. Collateral vessels identified within both lower extremities. Mild diffu se soft tissue edema of the left lower extremity. Postsurgical changes within the bilateral inguinal regions. LOWER CHEST: Coronary artery calcifications. Right lower lobe subpleural reticular scarring. IMPRESSION: 1. Increased size of infrarenal abdominal aortic aneurysm measuring up to 5.3 cm, previously 5.1 cm when measured with similar technique. The aneurysm sac contains significant amount of eccentric mural thrombus. Vascular surgical consultation is recommended. 2. Atherosclerotic disease involving abdominal aorta and lower extremity vasculature. Occlusion of t he left internal iliac artery at its origin. Long segment occlusion of the distal right superficial f emoral artery and proximal right popliteal artery with distal reconstitution. Occlusion of the proxim al right tibioperoneal trunk with distal reconstitution. Short segment occlusion of the distal left s uperficial femoral artery with distal reconstitution. Occlusion of the left tibioperoneal trunk with distal reconstitution of the left peroneal and posterior tibial arteries. 3. At least two vessels are seen crossing the ankle joint bilaterally. [facility], , 09/09/2024 5:15 PM
== END | disposition home or self-care (01) ==
LOC: RADCTMAIN 11:55
PROVIDERS: ATTEND Surgery
DX: I71.43 Infrarenal abdominal aortic aneurysm, without rupture (principal)
CPT/HCPCS: 82565; 84520; 75635; 36415; Q9967

== ENCOUNTER 2024-12-16 15:04 | Observation (INO) | payer MEDICARE, OTHER ==
--- NOTE | 2024-12-16 15:29 | ED ---
Chest Pain HPI - General Source: patient, RN notes reviewed Mode of arrival: ambulatory <Eva Sumner - Last Filed: 12/16/24 19:03> <Francis Seaman - Last Filed: 12/16/24 22:12> - General Chief Complaint: Chest Pain Stated Complaint: chest pain Time Seen by Provider: 12/16/24 15:27 - History of Present Illness Initial Comments: 69-year-old male with history of CAD with stents, COPD, DVT, hypertension, and hyperlipidemia presenting for chest pain x 2 weeks. Reports a stabbing, sharp pain on the right side of his chest worse with inspiration. States the pain has been worsening over the past couple of days. States he saw his PCP Dr. Lee yesterday who told him to come to the ER. States he has been dealing with sharp pain and swelling in his left leg over the past few months. He is on Plavix. States he has a history of bradycardia. (Eva Sumner) - Related Data Home Medications Medication Instructions Recorded Confirmed Clopidogrel [Plavix] 75 mg PO DAILY 01/12/14 12/16/24 Hydrocodone/Acetaminophen 1 tab PO QID PRN 01/12/14 12/16/24 [Hydrocodone/Acetaminophen 10-325] Nitroglycerin Sl Tabs [Nitrostat] 0.4 mg SUBLINGUAL Q5M PRN 01/12/14 12/16/24 ALPRAZolam [Xanax] 0.25 mg PO HS 04/30/15 12/16/24 Albuterol Inhaler [Ventolin Hfa 2 puff INHALATION RT-QID PRN 04/30/15 12/16/24 Inhaler] hydroCHLOROthiazide 50 mg PO DAILY 02/03/17 12/16/24 Glimepiride [Amaryl] 4 mg PO BID 07/19/18 12/16/24 metFORMIN HCL [Glucophage] 850 mg PO BID 07/19/18 12/16/24 Atorvastatin [Lipitor] 80 mg PO DAILY 09/09/18 12/16/24 Budesonide/Glycopyr/Formoterol 2 puff INHALATION RT-BID 12/16/24 12/16/24 [Breztri Aerosphere Inhaler] Losartan [Cozaar] 50 mg PO DAILY 12/16/24 12/16/24 hydrALAZINE HCL [Apresoline] 100 mg PO DAILY 12/16/24 12/16/24 Previous Rx's Medication Instructions Recorded Isosorbide Mononitrate ER [Imdur] 30 mg PO DAILY #90 tab.er.24h 04/01/19 Metoprolol Tartrate [Lopressor] 12.5 mg PO BID #180 tab 04/01/19 Allergies Allergy/AdvReac Type Severity Reaction Status Date / Time No Known Allergies Allergy Verified 12/16/24 15:10 Review of Systems ROS Other: All systems not noted in ROS Statement are negative. <Eva Sumner - Last Filed: 12/16/24 19:03> ROS Other: All systems not noted in ROS Statement are negative. <Francis Seaman - Last Filed: 12/16/24 22:12> ROS Statement: Those systems with pertinent positive or pertinent negative responses have been documented in the HPI. EKG Findings - EKG Results: EKG: interpreted by ERMD (EKG reveals sinus bradycardia with no acute ST changes. Ventricular rate 47 bpm, ME interval 176, QRS duration 109, QT/QTc 462/424. Repeat EKG reveals sinus bradycardia with no acute ST changes. Ventricular rate 46 bpm, ME interval 210, QRS duration 110, QT/QTc 487/445) <Eva Sumner - Last Filed: 12/16/24 19:03> Past Medical History Past Medical History: Coronary Artery Disease (CAD), Chest Pain / Angina, COPD, Deep Vein Thrombosis (DVT), GERD/Reflux, Hyperlipidemia, Hypertension, Osteoarthritis (OA), Pneumonia Additional Past Medical History / Comment(s): migraine; sleetmute, hole in left eardrum, PVD; varicose veins; psorasis; chronic back pain. restless leg syndrome, stated boarderline diabetic- takes metformin, trying to control with diet and exercise History of Any Multi-Drug Resistant Organisms: None Reported Past Surgical History: Back Surgery, Hernia Repair, Joint Replacement Additional Past Surgical History / Comment(s): hardware in back; rt knee replaced x2; egd; 4 stents (2018); left leg bypass graft, inguinal hernia.ABD AORTOGRAM AND LYNDA LOWER EXTREMITIY RUN OFF. triple A being monitored Past Anesthesia/Blood Transfusion Reactions: No Reported Reaction Date of Last Stent Placement:: JUN 2011 Past Psychological History: Anxiety, Depression Smoking Status: Current every day smoker Past Alcohol Use History: Occasional Past Drug Use History: Marijuana - Past Family History Father Family Medical History: Cancer Additional Family Medical History / Comment(s): ALZHEIMERS Brother(s) Family Medical History: Cancer Additional Family Medical History / Comment(s): LUNG CA Mother Family Medical History: Cancer Additional Family Medical History / Comment(s): PVD, LIVER PROBLEMS <Eva Sumner - Last Filed: 12/16/24 19:03> Course Vital Signs 12/16/24 12/16/24 12/16/24 15:07 15:35 19:19 Temperature 97.7 F Pulse Rate 51 L 45 L 49 L Pulse Rate [ [address] ] Respiratory 20 18 18 Rate Blood Pressure 184/77 167/97 159/80 O2 Sat by Pulse 98 98 97 Oximetry 12/16/24 22:03 Temperature Pulse Rate 49 L Pulse Rate [ Court Specialist ] Respiratory 16 Rate Blood Pressure 151/83 O2 Sat by Pulse 98 Oximetry Chest Pain MDM <Eva Sumner - Last Filed: 12/16/24 19:03> <Francis Seaman - Last Filed: 12/16/24 22:12> - MDM Was pt. sent in by a medical professional or institution (, PA, [employer], urgent care, hospital, or custodial...) When possible be specific @ -Sent by Dr. Lee Did you speak to anyone other than the patient for history (EMS, parent, family, police, friend...)? What history was obtained from this source @ -No Did you review nursing and triage notes (agree or disagree)? Why? @ -I reviewed and agree with nursing and triage notes Were old charts reviewed (outside hosp., previous admission, EMS record, old EKG, old radiological studies, urgent care reports/EKG's, custodial records)? Report findings @ -No old charts were reviewed Differential Diagnosis (chest pain, altered mental status, abdominal pain women, abdominal pain men, vaginal bleeding, weakness, fever, dyspnea, syncope, headache, dizziness, GI bleed, back pain, seizure, CVA, palpatations, mental health, musculoskeletal)? @ -Differential Chest Pain: Stable Angina, Unstable Angina, STEMI, NSTEMI Aortic Dissection, Pneumothorax, Musculoskeletal, Esophageal Spasm GERD, Cholecystitis, Pancreatitis, Zoster, this is not meant to be an all-inclusive list. EKG interpreted by me (3pts min.). @ -As above X-rays interpreted by me (1pt min.). @ -Chest x-ray reveals no acute process CT interpreted by me (1pt min.). @ -CT angio chest pending at time of signout U/S interpreted by me (1pt. min.). @ -Ultrasound left lower extremity pending at time of signout What testing was considered but not performed or refused? (CT, X-rays, U/S, labs)? Why? @ -None What meds were considered but not given or refused? Why? @ -None Did you discuss the management of the patient with other professionals (professionals i.e. , PA, [employer], lab, RT, psych nurse, home health care social worker, email engineer, teacher, certification officer, case planner)? Give summary @ -No Was smoking cessation discussed for >3mins.? @ -No Was critical care preformed (if so, how long)? @ -No Were there social determinants of health that impacted care today? How? (Homelessness, low income, unemployed, alcoholism, drug addiction, transportation, low edu. Level, literacy, decrease access to med. care, [facility], rehab)? @ -No Was there de-escalation of care discussed even if they declined (Discuss DNR or withdrawal of care, Hospice)? DNR status @ -No What co-morbidities impacted this encounter? (DM, HTN, Smoking, COPD, CAD, Cancer, CVA, ARF, Chemo, Hep., AIDS, mental health diagnosis, sleep apnea, morbid obesity)? @ -None Was patient admitted / discharged? Hospital course, mention meds given and route, prescriptions, significant lab abnormalities, going to OR and other pertinent info. @ -69-year-old male presenting for chest pain x 2 weeks. Chest pain is right- sided and pleuritic in nature. Patient is bradycardic which appears to be chr onic and hypertensive at 184/77. Patient is provided with loading dose aspirin and morphine. EKG reveals sinus bradycardia with no acute ST changes. Chest x- ray reveals no acute process. Lab work remarkable for elevated D-dimer at 4.32. Troponin undetectable, BNP 100, white blood cell count normal at 8. Heart score is 5. Case signed out to my ED attending Dr. Seaman pending CT chest and di sposition. (Eva Sumner) Patient signed out to me pending results of CT PE. CTPE returned negative for pulmonary embolism as interpreted by myself. Patient updated and will be admitted for cardiac observation. I spoke with the admitting provider, Dr. Lee who accepted the admission. Cardiology consulted. Troponins will be trended. Diagnosis/symptom? @ -Chest pain Acute, or Chronic, or Acute on Chronic? @ -Acute Uncomplicated (without systemic symptoms) or Complicated (systemic symptoms)? @ -Complicated Side effects of treatment? @ -None Exacerbation, Progression, or Severe Exacerbation] @ -No Poses a threat to life or bodily function? @ -Potentially, yes (Francis Seaman) Disposition <Eva Sumner - Last Filed: 12/16/24 19:03> Time of Disposition: 20:00 <Francis Seaman - Last Filed: 12/16/24 22:12> Clinical Impression: Chest pain Disposition: ADMITTED IP TO THIS HOSP Condition: Stable
[2024-12-16] MEDS: ASPIRIN 81 MG PO STA (15:39)
[2024-12-16] MEDS: MORPHINE SULFATE 4 MG/ML SYRINGE IVP STA (15:50)
[2024-12-16 16:05] LABS: Basophils # (A) 0.1 k/uL (0-0.2); Basophils % (A) 1 %; Eosinophils # (A) 0.4 k/uL (0-0.7); Eosinophils % (A) 5 %; HCT 48.1 % (39.0-53.0); HGB 15.5 gm/dL (13.0-17.5); Lymphocytes # (A) 2.8 k/uL (1.0-4.8); Lymphocytes % (A) 36 %; MCHC 32.3 g/dL (31.0-37.0); MCV 99.1 fL (80.0-100.0); Mean Platelet Volume 7.5; Monocytes # (A) 0.5 k/uL (0-1.0); Monocytes % (A) 7 %; Neutrophils # (A) 3.9 k/uL (1.3-7.7); Neutrophils % (A) 49 %; Platelet Count 195 k/uL (150-450); RBC 4.85 m/uL (4.30-5.90); RDW 12.7 % (11.5-15.5); WBC 7.8 k/uL (3.8-10.6)
--- NOTE | 2024-12-16 16:17 | XR ---
EXAMINATION TYPE: XR chest 2V DATE OF EXAM: 12/16/2024 CLINICAL INDICATION: Male, 69 years old with history of chest pain, TECHNIQUE: Frontal and lateral views of the chest are obtained. COMPARISON: Chest x-ray March 30, 2019 FINDINGS: There is no focal air space opacity, pleural effusion, or pneumothorax seen. The cardiac silhouette size is stable and upper limits of normal. The osseous structures are intact. IMPRESSION: No acute process. [facility], , 12/16/2024 4:15 PM
[2024-12-16 16:26] LABS: ALT 31 U/L (4-49); AST 30 U/L (17-59); African American GFR (CKD) >90 (>60 ml/min/1.73 sqM); Albumin 4.4 g/dL (3.5-5.0); Alkaline Phosphatase 71 U/L (38-126); Anion Gap 12 mmol/L; Blood Urea Nitrogen 13 mg/dL (9-20); Calcium 10.2 mg/dL (8.4-10.2); Carbon Dioxide 24 mmol/L (22-30); Chloride 101 mmol/L (98-107); Glucose 85 mg/dL (74-99); Magnesium 1.8 mg/dL (1.6-2.3); Non-African American GFR(CKD) >90 (>60 ml/min/1.73 sqM); Potassium 4.1 mmol/L (3.5-5.1); Sodium 137 mmol/L (137-145); Total Bilirubin 0.5 mg/dL (0.2-1.3)
[2024-12-16 16:27] LABS: Partial Thromboplastin Time 23.1 sec (22.0-30.0); Prothrombin Time 10.6 sec (10.0-12.5)
[2024-12-16 16:35] LABS: NT-Pro-B-Type Natriuretic Pept 100 pg/mL
--- NOTE | 2024-12-16 19:07 | CT ---
EXAMINATION TYPE: CT chest angio for PE DATE OF EXAM: 12/16/2024 6:17 PM COMPARISON: r CLINICAL INDICATION: Male, 69 years old with history of chest pain, elevated d-dimer, Chest pain, pos itive dimer, TECHNIQUE: CT of the chest is performed on a spiral scan at 2 mm thick sections. Study is performed with intravenous contrast timed for evaluation for pulmonary embolism. This will limit additional po rtions of the evaluation. 10mm MIP images reconstructed by the technologist are reviewed on the comp uter in the coronal and sagittal planes. Contrast used:60 cc mL of Isovue 370 with IV Contrast, (none if empty) Oral contrast used: (none if empty) CT DLP: 314.7 mGycm, Automated exposure control for dose reduction was used. FINDINGS: No persistent filling defects are evident to suggest an acute pulmonary embolism. No mediastinal or hilar adenopathy enlarged by CT criteria is evident. The ascending aorta diameter at the level of the main pulmonary artery is 3.8 cm. The main pulmonary artery diameter at the bifurcation is 2.8 cm. There is a 0.7 cm nodular density along the posterior left pleural margin, series 401 and 52. Coronary artery calcification is present. Vascular calcification within the aorta is evident. Limited CT sections were through the upper abdomen. Upper abdomen appears unremarkable. IMPRESSION: 1. No suspicious acute pulmonary embolism 2. Stable posterior left lung pleural-based nodule [facility], , 12/16/2024 7:04 PM
[2024-12-16] MEDS ORDERED: NALOXONE 0.4 MG/ML 1 ML VIAL IV PRN (20:04)
[2024-12-16] MEDS ORDERED: ACETAMINOPHEN TAB 325 MG TAB PO PRN (20:15)
[2024-12-16] MEDS ORDERED: ONDANSETRON 4 MG/2 ML VIAL IVP PRN (20:15)
--- NOTE | 2024-12-16 21:11 | US ---
EXAMINATION TYPE: US venous doppler duplex LE LT DATE OF EXAM: 12/16/2024 4:46 PM COMPARISON: US 2013 CLINICAL INDICATION: Male, 69 years old with history of left lower extremity pain; , Pain TECHNIQUE: The lower extremity deep venous system is examined utilizing real time linear array sonog gary with graded compression, color doppler sonography, and spectral doppler. SIDE PERFORMED: Left FINDINGS: VESSELS IMAGED: Common Femoral Vein Deep Femoral Vein Greater Saphenous Vein * Femoral Vein Popliteal Vein Small Saphenous Vein * Proximal Calf Veins (* superficial vessels) Left Leg: Appears negative for DVT IMPRESSION: Left lower extremity ultrasound negative for deep venous thrombosis. [facility], , 12/16/2024 9:08 PM
[2024-12-16] MEDS: MORPHINE SULFATE 4 MG/ML SYRINGE IV PRN (22:44)
[2024-12-16] MEDS ORDERED: NITROGLYCERIN SL TABS 0.4 MG TAB SUBLINGUAL PRN (23:59)
[2024-12-16] MEDS ORDERED: ALBUTEROL NEBULIZED 2.5 MG/3 ML INHALATION PRN (23:59)
[2024-12-16] MEDS ORDERED: HYDROcodone/APAP 10-325MG 1 EACH TAB PO PRN (23:59)
[2024-12-17] MEDS: HEPARIN SODIUM,PORCINE 5,000 UNIT/ML 1 ML VIAL SQ SCH (00:29)
[2024-12-17 00:47] LABS: Basophils % (A) 1 %; Eosinophils # (A) 0.4 k/uL (0-0.7); Eosinophils % (A) 6 %; HCT 45.9 % (39.0-53.0); HGB 15.1 gm/dL (13.0-17.5); Lymphocytes # (A) 2.2 k/uL (1.0-4.8); Lymphocytes % (A) 33 %; MCH 32.8 pg (25.0-35.0); MCHC 32.9 g/dL (31.0-37.0); MCV 99.7 fL (80.0-100.0); Mean Platelet Volume 7.6; Monocytes # (A) 0.6 k/uL (0-1.0); Monocytes % (A) 8 %; Neutrophils # (A) 3.4 k/uL (1.3-7.7); Neutrophils % (A) 50 %; Platelet Count 175 k/uL (150-450); RDW 12.8 % (11.5-15.5); WBC 6.7 k/uL (3.8-10.6)
[2024-12-17] MEDS: SYMBICORT 160-4.5 MCG INHALER INHALATION SCH (08:09)
[2024-12-17] MEDS: TIOTROPIUM 2.5 MCG INHALER INHALATION SCH (08:09)
[2024-12-17] MEDS: METOPROLOL TARTRATE 12.5 MG TAB PO SCH (09:01)
[2024-12-17] MEDS: CLOPIDOGREL 75 MG TAB PO SCH (09:08)
[2024-12-17] MEDS: LOSARTAN 50 MG TAB PO SCH (09:08)
[2024-12-17] MEDS: hydrALAZINE HCL 50 MG TAB PO SCH (09:08)
[2024-12-17] MEDS: ATORVASTATIN 80 MG TAB PO SCH (09:08)
[2024-12-17] MEDS: ISOSORBIDE MONONITRATE ER 30 MG TAB.ER.24H PO SCH (09:08)
[2024-12-17] MEDS ORDERED: IOPAMIDOL CONTRAST (ORAL USE) VIAL PO PRN (09:14)
[2024-12-17] MEDS: metFORMIN 850 MG TAB PO SCH (09:37)
[2024-12-17 09:46] LABS: ALT 28 U/L (10-49); AST 25 U/L (14-35); Albumin 4.1 g/dL (3.8-4.9); Albumin/Globulin Ratio 1.95 Ratio (1.60-3.17); Alkaline Phosphatase 89 U/L (41-126); BUN/Creat Ratio 16.29 Ratio (12.00-20.00); Blood Urea Nitrogen 11.4 mg/dL (9.0-27.0); Calcium 9.6 mg/dL (8.7-10.3); Carbon Dioxide 29.3 mmol/L (21.6-31.8); Chloride 102 mmol/L (96-109); Globulin 2.1 g/dL (1.6-3.3); Glucose 120 mg/dL (70-110); Sodium 139 mmol/L (135-145); Total Bilirubin 0.5 mg/dL (0.3-1.2); Total Protein 6.2 g/dL (6.2-8.2)
[2024-12-17 11:38] VITALS: BMI 25.4
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
[2024-12-17] MEDS: GLIMEPIRIDE 4 MG TAB PO SCH (12:00)
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
[2024-12-17 14:49] VITALS: BP 115/62; PULSE 67; RESP 17; TEMP 98.2
[2024-12-17] MEDS: amLODIPine 5 MG TAB PO STA (15:28)
--- NOTE | 2024-12-17 16:02 | P.CRDCN ---
History of Present Illness Consult date: 12/17/24 History of present illness: HISTORY OF PRESENTING ILLNESS: Patient with prior history of CAD status post PCI x 4, hypertension, dyslipidemia, DVT and suspected PAD. He presented to the hospital because of substernal chest pressure-like symptoms. He describes his pain as fleeting type, no radiation, no associated diaphoresis nausea or vomiting. He describes this pain as sharp stabbing stabbing type sometimes gets worse with inspiration. On admission he was noticed to be hypertensive. BP 115/62, heart rate 46 bpm Admission ECG showed sinus bradycardia with heart rate of 46 bpm, first-degree AV block, no significant ST-T wave changes that are diagnostic for ischemia. No clear ST changes are stable pericarditis Chest x-ray did not show any signs of consolidation congestion. He had a CTA chest done which did not show any evidence of PE however did show significant coronary artery calcification burden. Admission lab did not show any elevated troponins, NT-proBNP was 808, normal BUN and creatinine and normal hemoglobin levels. REVIEW OF SYSTEMS: 14 point review of system is negative except what is mentioned above in HPI. PHYSICAL EXAMINATION: Neck: Brisk carotid upstroke, no jugular venous distention. Lungs: Clear to auscultation. Heart: Regular rate and rhythm, S1-S2, , no murmur or rub. Abdomen: Soft nontender, positive bowel sounds. Extremities: No edema, intact distal pulses. Neuro: Alert, oritented, no focal deficits. Detailed neuro exam was not performed. ASSESSMENT: # Atypical chest pain, likely related to poorly controlled BP # Essential hypertension, poorly controlled # Sinus bradycardia # Stable CAD status post PCI x 4 # Prior history of DVT, not on anticoagulation # Suspected history of PAD PLAN: Chest pain description is very atypical. Could be related to poorly controlled blood pressure. Will check for ESR and CRP levels, HbA1c and lipid panel Continue aspirin, Lipitor 40 mg, Plavix 75 mg daily He is on atypical antihypertensives at this time he is on hydrochlorothiazide 50 mg, hydralazine 100 mg losartan 50 mg daily, metoprolol 12.5 mg twice daily. I will change these medications to the following regimen Amlodipine 5 mg, Coreg 3.125 mg twice daily, Losartan 50 mg twice daily, HCTZ 25 mg daily, discontinue hydralazine Recommend to monitor blood pressure Follow-up outpatient in next 1 to 2 weeks Mike Barr MD, FAC, RPVI Thank you for allowing [facility] to participate in this patient's care. Feel free to reach out in case of any followup questions. Past Medical History Past Medical History: Coronary Artery Disease (CAD), Chest Pain / Angina, COPD, Deep Vein Thrombosis (DVT), GERD/Reflux, Hyperlipidemia, Hypertension, Osteoarthritis (OA), Pneumonia Additional Past Medical History / Comment(s): migraine; [place], hole in left eardrum, PVD; varicose veins; psorasis; chronic back pain. restless leg syndrome, stated boarderline diabetic- takes metformin, trying to control with diet and exercise History of Any Multi-Drug Resistant Organisms: None Reported Past Surgical History: Back Surgery, Hernia Repair, Joint Replacement Additional Past Surgical History / Comment(s): hardware in back; rt knee replaced x2; egd; 4 stents (2018); left leg bypass graft, inguinal hernia.ABD AORTOGRAM AND LYNDA LOWER EXTREMITIY RUN OFF. triple A being monitored Past Anesthesia/Blood Transfusion Reactions: No Reported Reaction Date of Last Stent Placement:: JUN 2011 Past Psychological History: Anxiety, Depression Additional Psychological History / Comment(s): NOT CURRENTLY TAKING MEDS FOR ANXIETY OR DEPRESSION Smoking Status: Current every day smoker Past Alcohol Use History: Occasional Additional Past Alcohol Use History / Comment(s): STARTED SMOKING AT AGE 10, SMOKED 15 CIG PER DAY -HAS CUT DOWN TO 3 CIGS PER DAY Past Drug Use History: Marijuana Additional Drug Use History / Comment(s): STATED USED MARIJUANA LAST ON HIS BIRTHDAY - Past Family History Father Family Medical History: Cancer Additional Family Medical History / Comment(s): ALZHEIMERS Brother(s) Family Medical History: Cancer Additional Family Medical History / Comment(s): LUNG CA Mother Family Medical History: Cancer Additional Family Medical History / Comment(s): PVD, LIVER PROBLEMS Medications and Allergies Home Medications Medication Instructions Recorded Confirmed Type Clopidogrel [Plavix] 75 mg PO DAILY 01/12/14 12/16/24 History Hydrocodone/Acetaminophen 1 tab PO QID PRN 01/12/14 12/16/24 History [Hydrocodone/Acetaminophen 10-325] Nitroglycerin Sl Tabs [Nitrostat] 0.4 mg SUBLINGUAL Q5M PRN 01/12/14 12/16/24 History ALPRAZolam [Xanax] 0.25 mg PO HS 04/30/15 12/16/24 History Albuterol Inhaler [Ventolin Hfa 2 puff INHALATION RT-QID PRN 04/30/15 12/16/24 History Inhaler] hydroCHLOROthiazide 50 mg PO DAILY 02/03/17 12/16/24 History Glimepiride [Amaryl] 4 mg PO BID 07/19/18 12/16/24 History metFORMIN HCL [Glucophage] 850 mg PO BID 07/19/18 12/16/24 History Atorvastatin [Lipitor] 80 mg PO DAILY 09/09/18 12/16/24 History Isosorbide Mononitrate ER [Imdur] 30 mg PO DAILY #90 tab.er.24h 04/01/19 12/16/24 Rx Metoprolol Tartrate [Lopressor] 12.5 mg PO BID #180 tab 04/01/19 12/16/24 Rx Budesonide/Glycopyr/Formoterol 2 puff INHALATION RT-BID 12/16/24 12/16/24 History [Breztri Aerosphere Inhaler] Losartan [Cozaar] 50 mg PO DAILY 12/16/24 12/16/24 History hydrALAZINE HCL [Apresoline] 100 mg PO DAILY 12/16/24 12/16/24 History Allergies Allergy/AdvReac Type Severity Reaction Status Date / Time No Known Allergies Allergy Verified 12/16/24 15:10 Physical Exam Vitals: Vital Signs Temp Pulse Pulse Resp BP BP Pulse Ox 12/17/24 14:48 98.2 F 67 17 115/62 95 12/17/24 09:01 46 L 12/17/24 07:00 98.1 F 40 L 16 176/75 97 12/17/24 01:20 97.7 F 60 15 158/66 100 12/16/24 22:03 49 L 16 151/83 98 12/16/24 19:19 49 L 18 159/80 97 Intake and Output 12/17/24 12/17/24 12/17/24 06:59 14:59 22:59 Intake Total 236 Balance 236 Intake: Oral 236 Other: Voiding Method Toilet # Voids 2 2 Weight 75.75 kg Results 12/17/24 00:00 12/17/24 00:00 Cardiac Enzymes 12/16/24 12/16/24 12/16/24 Range/Units 15:52 15:52 20:37 AST 30 (17-59) U/L Troponin I <0.012 <0.012 (0.000-0.034) ng/mL 12/16/24 12/17/24 Range/Units 23:55 00:00 AST 25 (17-59) U/L Troponin I <0.012 (0.000-0.034) ng/mL Coagulation 12/16/24 Range/Units 15:52 PT 10.6 (10.0-12.5) sec APTT 23.1 (22.0-30.0) sec CBC 12/16/24 12/17/24 Range/Units 15:52 00:00 WBC 7.8 6.7 (3.8-10.6) k/uL RBC 4.85 4.60 (4.30-5.90) m/uL Hgb 15.5 15.1 (13.0-17.5) gm/dL Hct 48.1 45.9 (39.0-53.0) % Plt Count 195 175 (150-450) k/uL Comprehensive Metabolic Panel 12/16/24 12/17/24 Range/Units 15:52 00:00 Sodium 137 139 (137-145) mmol/L Potassium 4.1 4.0 (3.5-5.1) mmol/L Chloride 101 102 (98-107) mmol/L Carbon Dioxide 24 29.3 (22-30) mmol/L BUN 13 11.4 (9-20) mg/dL Creatinine 0.58 L 0.7 (0.66-1.25) mg/dL Glucose 85 120 H (74-99) mg/dL Calcium 10.2 9.6 (8.4-10.2) mg/dL AST 30 25 (17-59) U/L ALT 31 28 (4-49) U/L Alkaline Phosphatase 71 89 (38-126) U/L Total Protein 7.0 6.2 (6.3-8.2) g/dL Albumin 4.4 4.1 (3.5-5.0) g/dL Current Medications Generic Name Dose Route Start Last Admin Trade Name Freq PRN Reason Stop Dose Admin Acetaminophen 650 mg 12/16/24 20:15 Acetaminophen Tab 325 Mg Tab PO Q6HR PRN Mild Pain or Fever > 100.5 Hydrocodone Bitart/Acetaminophen 1 each 12/16/24 23:59 Hydrocodone/Apap 10-325mg 1 Each Tab PO QID PRN Pain Albuterol Sulfate 2.5 mg 12/16/24 23:59 Albuterol Nebulized 2.5 Mg/3 Ml INHALATION RT-QID PRN Shortness Of Breath Alprazolam 0.25 mg 12/17/24 21:00 Alprazolam 0.25 Mg Tab PO HS [facility] Amlodipine Besylate 10 mg 12/18/24 09:00 Amlodipine 10 Mg Tab PO DAILY [facility] Atorvastatin Calcium 40 mg 12/18/24 09:00 Atorvastatin 40 Mg Tab PO DAILY [facility] Budesonide/Formoterol Fumarate 2 puff 12/17/24 08:00 12/17/24 08:09 Symbicort 160-4.5 Mcg Inhaler INHALATION 2 puff RT-BID [facility] Administration Carvedilol 3.125 mg 12/17/24 17:30 Carvedilol 3.125 Mg Tab PO BID-W/MEALS [facility] Clopidogrel Bisulfate 75 mg 12/17/24 09:00 12/17/24 09:08 Clopidogrel 75 Mg Tab PO 75 mg DAILY [facility] Administration Glimepiride 4 mg 12/17/24 09:00 12/17/24 12:00 Glimepiride 4 Mg Tab PO Not Given BID [facility] Heparin Sodium (Porcine) 5,000 unit 12/17/24 00:00 12/17/24 09:08 Heparin Sodium,Porcine 5,000 Unit/Ml 1 Ml Vial SQ 5,000 unit Q8HR [facility] Administration Hydrochlorothiazide 25 mg 12/18/24 09:00 Hydrochlorothiazide 25 Mg Tab PO DAILY [facility] Iopamidol 30 ml 12/17/24 09:14 Iopamidol Contrast (Oral Use) Vial PO 12/18/24 09:[address] Scan Isosorbide Mononitrate 30 mg 12/17/24 09:00 12/17/24 09:08 Isosorbide Mononitrate Er 30 Mg Tab.Er.24h PO 30 mg DAILY [facility] Administration Losartan Potassium 50 mg 12/17/24 21:00 Losartan 50 Mg Tab PO BID [facility] Morphine Sulfate 4 mg 12/16/24 20:15 12/16/24 22:44 Morphine Sulfate 4 Mg/Ml Syringe IV 4 mg Q4HR PRN Administration Severe Pain (Scale 7 to 10) Naloxone HCl 0.2 mg 12/16/24 20:04 Naloxone 0.4 Mg/Ml 1 Ml Vial IV Q2M PRN Opioid Reversal Nitroglycerin 0.4 mg 12/16/24 23:59 Nitroglycerin Sl Tabs 0.4 Mg Tab SUBLINGUAL Q5M PRN Chest Pain Ondansetron HCl 4 mg 12/16/24 20:15 Ondansetron 4 Mg/2 Ml Vial IVP Q8HR PRN Nausea And Vomiting Tiotropium [place] 2 puff 12/17/24 08:00 12/17/24 08:09 Tiotropium 2.5 Mcg Inhaler INHALATION 2 puff RT-DAILY [facility] Administration Intake and Output 12/17/24 12/17/24 12/17/24 06:59 14:59 22:59 Intake Total 236 Balance 236 Intake: Oral 236 Other: Voiding Method Toilet # Voids 2 2 Weight 75.75 kg Patient Weight 12/18/24 06:59 Weight 75.75 kg 12/17/24 00:00 12/17/24 00:00
[2024-12-17 16:49] LABS: C Reactive Protein <0.5 mg/dL (<1.0)
[2024-12-17] MEDS ORDERED: carvediloL 3.125 MG TAB PO SCH (17:30)
[2024-12-17] MEDS ORDERED: ALPRAZolam 0.25 MG TAB PO SCH (21:00)
[2024-12-17] MEDS ORDERED: LOSARTAN 50 MG TAB PO SCH (21:00)
[2024-12-18] MEDS ORDERED: amLODIPine 10 MG TAB PO SCH (09:00)
[2024-12-18] MEDS ORDERED: hydroCHLOROthiazide 25 MG TAB PO SCH (09:00)
[2024-12-18] MEDS ORDERED: ATORVASTATIN 40 MG TAB PO SCH (09:00)
[2024-12-18 09:43] LABS: LDL Cholesterol,Calculated 34.4 mg/dL (0.0-131.0); VLDL Calculation 16.82 mg/dL (5.00-40.00)
--- NOTE | 2024-12-19 01:21 | DS ---
DISCHARGE SUMMARY CHIEF COMPLAINT: Chest pain. HISTORY OF PRESENT ILLNESS AND PHYSICAL EXAMINATION: Details of this man's history and physical can be found in the initial workup. LABORATORY STUDIES: While he was in the hospital, he had laboratory studies, details of which can be found in the laboratory section of his chart. COURSE IN THE HOSPITAL: After admission, he was placed on bedrest, started on intravenous fluids and had serial EKGs and enzymes. He was seen by Cardiology. His chest pain was actually in the lower right anterolateral chest area around the costal margin. It was felt that he did not require any further inpatient workup and that he could be discharged and follow up in the office. FINAL DIAGNOSES: 1. Right lower anterior or lateral chest pain, noncardiac. 2. Chronic obstructive pulmonary disease. OPERATIONS: None. CONSULTATION: Cardiology. He is improved. MMODL / IJN: [id number] /
== END 2024-12-17 17:00 | disposition home or self-care (01) ==
LOC: EC 15:04 → 6NMEDSUR 20:04
PROVIDERS: ADMIT Family Medicine; ATTEND Family Medicine
DX: R07.89 Other chest pain (principal); I10 Essential (primary) hypertension; I25.10 Atherosclerotic heart disease of native coronary artery without angina pectoris; R00.1 Bradycardia, unspecified; I44.0 Atrioventricular block, first degree; E78.5 Hyperlipidemia, unspecified; J44.9 Chronic obstructive pulmonary disease, unspecified; R10.11 Right upper quadrant pain; M79.605 Pain in left leg; R22.42 Localized swelling, mass and lump, left lower limb; R79.89 Other specified abnormal findings of blood chemistry; F17.210 Nicotine dependence, cigarettes, uncomplicated; Z79.02 Long term (current) use of antithrombotics/antiplatelets; Z79.84 Long term (current) use of oral hypoglycemic drugs; Z79.51 Long term (current) use of inhaled steroids; Z79.899 Other long term (current) drug therapy; Z95.5 Presence of coronary angioplasty implant and graft; Z86.718 Personal history of other venous thrombosis and embolism; Z87.828 Personal history of other (healed) physical injury and trauma
CPT/HCPCS: 96376; 96372; 96374; 99285; 36415; 94640 ×2; 93005; 85379; 83880; 80061; 80053 ×2; 85652; 83735; 84484; 85025 ×2; 85610; 85730; 86140; 83036; 71046; 93971; 71275; G0378 ×2; J2270; J1644; Q9967

== ENCOUNTER → 2024-12-29 | Outpatient (CLI) | payer MEDICARE, OTHER ==
--- NOTE | 2024-12-29 09:38 | US ---
EXAMINATION TYPE: US abdomen complete DATE OF EXAM: 12/29/2024 COMPARISON: CT: 09/09/2024 CLINICAL INDICATION: Male, 69 years old with history of R10.11 RIGHT UPPER QUADRANT PAIN; RUQ pain TECHNIQUE: Grayscale and color Doppler imaging of the abdomen was performed. FINDINGS: EXAM MEASUREMENTS: Liver Length: 15.5 cm Gallbladder Wall: 0.2 cm CBD: 0.9 cm, color Doppler imaging was utilized to isolate the common bile duct for measurement. Spleen: 9.0 cm Right Kidney: 10.5 x 6.0 x 4.7 cm Left Kidney: 11.7 x 5.8 x 5.4 cm [employer] NOTES: Pancreas: limited due to overlying bowel gas Liver: heterogeneous Gallbladder: wnl Evidence for sonographic Carrillo's sign: No CBD: wnl Spleen: limited due to body habitus Right Kidney: Possible column of Rob mid pole Left Kidney: wnl, No hydronephrosis, calculi or masses seen Upper IVC: wnl Abd Aorta: limited due to bowel gas. Known AAA seen distally measuring 5.8 x 5.0cm The liver is heterogenous without focal lesion identified. The intrahepatic portion of the IVC is wi thin normal limits. Distal abdominal aortic aneurysm measuring up to 5.8 cm with atherosclerotic calc ification of the aorta. There is no evidence of cholelithiasis. Common bile duct is mildly dilated m easuring up to 9 mm. The visualized portions of the pancreas are homogenous. The visualized portion of the spleen appears unremarkable. Kidneys are symmetric and free of hydronephrosis. Column of Berti n within the right kidney. No renal lesions are seen. IMPRESSION: 1. Stable mild common bile duct dilatation measuring up to 9 mm. Correlate with biliary labs. Consid er further evaluation with MRCP as clinically indicated. 2. Redemonstration of known abdominal aortic aneurysm. [facility], , 12/29/2024 9:35 AM
== END | disposition home or self-care (01) ==
LOC: RADUSWWP 08:54
PROVIDERS: ATTEND Family Medicine
DX: K83.8 Other specified diseases of biliary tract (principal); I71.40 Abdominal aortic aneurysm, without rupture, unspecified
CPT/HCPCS: 76700

== ENCOUNTER → 2025-01-10 | Outpatient (CLI) | payer MEDICARE, OTHER ==
--- NOTE | 2025-01-11 13:30 | MR ---
EXAMINATION TYPE: MR Prostate wo/w con DATE OF EXAM: 01/10/2025 COMPARISON: Prior prostate MRI June 03, 2023 INDICATION: Elevated PSA. PSA: 14.15 ng/ml on August 02, 2024 Recent Biopsy and Date: None Pathology Report (If Applicable): n/a TECHNIQUE: Examination was performed using a 3T MRI without an endorectal coil. Multiparametric imaging was perf ormed with T2 mutliplanar sequences, axial diffusion weighted imaging and dynamic contrast enhanced i maging, utilizing 8 mL intravenous Gadobutrol gadolinium contrast. FINDINGS: PROSTATE VOLUME: 3.8 cm SI x 3.5 cm AP x 4.3 cm LR Vol= 29.9 cc PSA DENSITY: 0.47 ng/ml/cc Prostate gland remains upper limits of normal in size to slightly enlarged. Peripheral zone shows howard e wedge-shaped areas of slightly diminished signal bilaterally. Slight increased signal on diffusion- weighted imaging right lateral apex without suspicious diminished area on ADC mapping. Transitional z one shows bilateral small nodules. No new suspicious T2 hypointense lesion. More prominent wedge-shaped 1.1 cm area with more prominent diminished signal on ADC imaging and slig htly increased signal on diffusion-weighted imaging in the left mid zone corresponding to T2 hypointe nse area with slight focal postcontrast enhancement. This extends down towards the apex. PI RADS 4 le anuradha. Seminal vesicles are unremarkable. No destructive osseous lesions. Susceptibility artifact from surgi janay change at L4 level is incidentally noted. Persistent tortuous vessels in the anterior subcutaneou s tissue of the pelvis. IMPRESSION: Prostate gland remains upper limits of normal in size to minimally enlarged. Slightly more suspicious lesion in the left mid peripheral zone laterally extending towards the apex is noted. Advised imaging guided targeted biopsy given MRI findings and increasing PSA. Highest Assessment Category: 4 MRI Stage: T0 N0 M0 based on review of pelvic images. False negative rates for MRI range from 5-20% depending on risk profile. Assessment Categories: 1 ? Very low (clinically significant cancer is highly unlikely to be present) 2 ? Low (clinically significant cancer is unlikely to be present) 3 ? Intermediate (the presence of clinically significant cancer is equivocal) 4 ? High (clinically significant cancer is likely to be present) 5 ? Very high (clinically significant cancer is highly likely to be present) [facility], , 01/11/2025 1:28 PM
== END | disposition home or self-care (01) ==
LOC: RADMRIMAIN 08:37
PROVIDERS: ATTEND Urology
DX: R97.20 Elevated prostate specific antigen [PSA] (principal); N40.0 Benign prostatic hyperplasia without lower urinary tract symptoms
CPT/HCPCS: 72197; A9585

== ENCOUNTER → 2025-03-27 | Outpatient (CLI) | payer MEDICARE, OTHER ==
[2025-03-27 15:36] LABS: Bilirubin,Urine Negative (Negative); Blood,Urine Negative (Negative); Color,Urine Yellow (Yellow); Ketones,Urine Trace (Negative); Nitrite,Urine Negative (Negative); PH, Urine 5.5; Specific Gravity,Urine 1.022 (1.001-1.030); Urobilinogen,Urine 1.0 E.U./DL
[2025-03-27 15:43] LABS: Bacteria,Urine None Seen (None Seen)
[2025-03-27 15:46] LABS: Anion Gap 12.00 mmol/L (4.00-12.00); BUN/Creat Ratio 13.22 Ratio (12.00-20.00); Blood Urea Nitrogen 11.9 mg/dL (9.0-27.0); Calcium 9.5 mg/dL (8.7-10.3); Carbon Dioxide 25.0 mmol/L (21.6-31.8); Chloride 101 mmol/L (96-109); Glucose 138 mg/dL (70-110); Potassium 4.3 mmol/L (3.5-5.5); Sodium 138 mmol/L (135-145)
[2025-03-27 16:06] LABS: Basophils # (A) 0.04 X 10*3/uL (0.00-0.10); Basophils % (A) 0.7 %; Eosinophils # (A) 0.13 X 10*3/uL (0.04-0.35); Eosinophils % (A) 2.2 %; HCT 46.9 % (39.6-50.0); HGB 15.7 g/dL (13.0-17.0); Immature Grans, Automated 0.20 %; Lymphocytes # (A) 1.87 X 10*3/uL (0.90-5.00); Lymphocytes % (A) 31.1 %; MCH 32.7 pg (27.0-32.0); MCHC 33.5 g/dL (32.0-37.0); MCV 97.7 FL (80.0-97.0); Monocytes # (A) 0.56 X 10*3/uL (0.20-1.00); Monocytes % (A) 9.3 %; NRBC Per 100 WBC 0 X 10*3/uL (0.00-0.01); Neutrophils # (A) 3.41 X 10*3/uL (1.80-7.70); Neutrophils % (A) 56.5 %; Platelet Count 174 X 10*3/uL (140-440); RBC 4.80 X 10*6/uL (4.40-5.60); RDW 13.1 % (11.5-14.5); WBC 6.02 X 10*3/uL (4.50-10.00)
== END | disposition home or self-care (01) ==
LOC: LABPAT 11:02
PROVIDERS: ATTEND Urology
DX: Z01.812 Encounter for preprocedural laboratory examination (principal); R97.20 Elevated prostate specific antigen [PSA]
CPT/HCPCS: 80048; 81001; 85025; 87086